=== PATIENT | male | born 1970 | race Caucasian/White ===

== ENCOUNTER 2016-10-20 08:15 | Emergency (ER) | payer OTHER ==
[~2016-10-20] VITALS: Ht 177.8 cm; Wt 101.7 kg
[2016-10-20 08:20] VITALS: BP 149/106; PULSE 72; RESP 15; TEMP 98.8; O2SAT 98
[2016-10-20] MEDS ORDERED: MULT1TAB85 PO (08:29)
--- NOTE | 2016-10-20 08:35 | PD ---
HPI Chief Complaint: Cold / Flu Symptoms Time Seen by Provider: 08:28 Travel History International Travel<30 days: No Contact w/Intl Traveler<30days: No Traveled to known affect area: No History of Present Illness HPI 46-year-old male here with complaint of flulike symptoms. Patient has had 5 days of cough, cold, chest congestion, sore throat, subjective fevers and chills and body aches. He recently traveled to [place] where he visited family in multiple members of his family were ill there with similar symptoms. Patient denies any documented fevers. Cough is primarily nonproductive. He presents the ER today because last night he noted some wheezing which was new when he's never had this before. Patient has been using [id number] Sudafed, DayQuil and NyQuil with some improvement of his symptoms. PFSH Past Medical History Hypertension: Yes Influenza Vaccination: No ?: Not Past Surgical History Surgical History: No Previous Surgery Social History Alcohol Use: Yes (COUPLE TIMES PER MONTH) Tobacco Use: No Substance Use: No Allergies-Medications (Allergen,Severity, Reaction): Coded Allergies: No Known Allergies (Unverified , 10/20/16) Reported Meds & Prescriptions Reported Meds & Active Scripts Active Reported Multivitamin Men (Multiple Vitamins W/ Minerals) 1 Tab Tab 1 Tab PO DAILY Review of Systems Except as stated in HPI: all other systems reviewed are Neg Physical Exam Narrative GENERAL: Well-appearing male in no acute distress SKIN: Focused skin assessment warm/dry. HEAD: Normocephalic. EYES: No scleral icterus. No injection or drainage. ENT: Nasal mucosal injection with slight erythema of the posterior pharynx but no exudate or petechiae. Mucous membranes pink and moist. TMs clear bilaterally. NECK: Supple CARDIOVASCULAR: Regular rate and rhythm. No murmur appreciated. RESPIRATORY: No accessory muscle use. Clear to auscultation. Breath sounds equal bilaterally. MUSCULOSKELETAL: Normal gait NEUROLOGICAL: Awake and alert. Normal speech. PSYCHIATRIC: Appropriate mood and affect; insight and judgment normal. Data Data Last Documented VS Vital Signs Date Time Temp Pulse Resp B/P Pulse Ox O2 Delivery O2 Flow Rate FiO2 10/20/16 08:20 98.8 72 15 149/106 98 Orders Dexamethasone Inj (Decadron Inj) (10/20/16 08:45) [facility] Medical Decision Making Medical Screen Exam Complete: Yes Emergency Medical Condition: Yes Medical Record Reviewed: Yes Differential Diagnosis 46-year-old male here with complaint of flulike symptoms 5 days with multiple sick contacts ill with similar symptoms. Symptoms likely viral upper respiratory infection, less likely influenza, sinusitis, otitis, bronchitis, pneumonia. Narrative Course Patient's most bothersome symptom is his cough. We'll treat with a dose of Decadron here and discharged home with continuation of [id number] regimen. Diagnosis Primary Impression: Upper respiratory infection Qualified Code: J06.9 - Upper respiratory tract infection, unspecified type Referrals: [facility] Primary Care Physician as needed Additional Instructions: Continue [id number] regimens as discussed. Med/Other Pt SpecificInfo: No Change to Meds Disposition: 01 DISCHARGE HOME Condition: Stable Zulma Meyer MD Oct 20, 2016 08:35
[2016-10-20] MEDS ORDERED: DEXAMETHASONE SOD PHOS 20 MG/5 ML VIAL IM ONE (08:45)
[2016-10-20 09:01] VITALS: BP 161/90
== END 2016-10-20 09:02 | disposition home or self-care (01) ==
LOC: PHEFT 08:15
DX: J06.9 Acute upper respiratory infection, unspecified (principal); I10 Essential (primary) hypertension
CPT/HCPCS: 96372; 99283; J1100

== ENCOUNTER 2016-12-10 21:44 | Inpatient (IN) | payer SELFPAY ==
[~2016-12-10] VITALS: Ht 177.8 cm; Wt 101.5 kg
[~2016-12-10 21:44] MED LIST: MULT1TAB85 PO
[2016-12-10 21:55] VITALS: BP 167/117; PULSE 108; RESP 20; TEMP 99.6
[2016-12-10 22:00] VITALS: BP 188/111; PULSE 94; RESP 22; TEMP 98.3; O2SAT 95
--- NOTE | 2016-12-10 22:13 | PD ---
HPI Chief Complaint: Abdominal Pain Time Seen by Provider: 21:59 Travel History International Travel<30 days: No Contact w/Intl Traveler<30days: No Traveled to known affect area: No History of Present Illness HPI This this 46-year-old male was at work today when he had sudden onset of right flank pain. Pain was quite severe and brought him to his knees. He had felt well when he went to work. He has not had pain like this before. He was nauseated and broke out in a cold sweat. Pain has been ongoing since then. PFSH Past Medical History Hypertension: Yes Social History Alcohol Use: Yes (COUPLE TIMES PER MONTH) Tobacco Use: No Substance Use: No Allergies-Medications (Allergen,Severity, Reaction): Coded Allergies: No Known Allergies (Unverified , 12/10/16) Reported Meds & Prescriptions Reported Meds & Active Scripts Active Review of Systems General / Constitutional: Positive: Chills Eyes: No: Diploplia, Blurred Vision HENT: No: Headaches, Vertigo Cardiovascular: No: Chest Pain or Discomfort, Palpitations Respiratory: No: Cough, Shortness of Breath Gastrointestinal: Positive: Nausea Genitourinary: Positive: Flank Pain Skin: No Rash, No Itching Neurologic: No: Weakness, Dizziness Psychiatric: No: Anxiety Endocrine: No: Heat Intolerance Hematologic/Lymphatic: No: Easy Bruising Physical Exam Narrative GENERAL: He is in distress on arrival. He is cool and slightly diaphoretic SKIN: Focused skin assessment HEAD: Atraumatic. Normocephalic. EYES: Pupils equal and round. No scleral icterus. No injection or drainage. ENT: No nasal bleeding or discharge. Mucous membranes pink and moist. NECK: Trachea midline. No JVD. CARDIOVASCULAR: Regular rate and rhythm. No murmur appreciated. RESPIRATORY: No accessory muscle use. Clear to auscultation. Breath sounds equal bilaterally. GASTROINTESTINAL: Abdomen soft, non-tender, nondistended. Hepatic and splenic margins not palpable. There is some right CVA tenderness MUSCULOSKELETAL: No obvious deformities. No clubbing. No cyanosis. No edema. NEUROLOGICAL: Awake and alert. No obvious cranial nerve deficits. Motor grossly within normal limits. Normal speech. PSYCHIATRIC: Appropriate mood and affect; insight and judgment normal. Data Data Last Documented VS Vital Signs Date Time Temp Pulse Resp B/P Pulse Ox O2 Delivery O2 Flow Rate FiO2 12/10/16 23:18 18 6/12/17 22:56 79 118/74 95 12/10/16 22:00 98.3 Room Air Orders Complete Blood Count With Diff (12/10/16 22:03) Comprehensive Metabolic Panel (12/10/16 22:03) Urinalysis - C+S If Indicated (12/10/16 22:03) Ct Abd/Pel W/O Iv Contrast (12/10/16 22:03) Ketorolac Inj (Toradol Inj) (12/10/16 22:15) Ondansetron Inj (Zofran Inj) (12/10/16 22:15) Sodium Chloride 0.9% Flush (Ns Flush) (12/10/16 22:15) Hydromorphone Pf Inj (Dilaudid Pf Inj) (12/10/16 22:15) Sodium Chlor 0.9% 1000 Ml Inj (Ns 1000 M (12/10/16 22:15) Prothrombin Time / Inr (Pt) (12/10/16 22:59) Act Partial Throm Time (Ptt) (12/10/16 22:59) Type And Screen (12/10/16 23:00) Potassium Chloride (Kcl) (12/10/16 23:15) Place In Observation (12/10/16 ) Vital Signs (Adult) Q4H (12/10/16 23:40) Activity Oob With Assistance (12/10/16 23:40) Neck Cutter / Telemetry .CONTINUOUS (12/10/16 23:40) Diet Npo (12/11/16 Breakfast) Sodium Chlor 0.9% 1000 Ml Inj (Ns 1000 M (12/10/16 23:40) Sodium Chloride 0.9% Flush (Ns Flush) (12/10/16 23:45) Sodium Chloride 0.9% Flush (Ns Flush) (12/11/16 09:00) Basic Metabolic Panel (Bmp) (12/11/16 06:00) Complete Blood Count With Diff (12/11/16 06:00) Case Management Consult (12/10/16 23:40) Naloxone Inj (Narcan Inj) (12/10/16 23:45) Hydromorphone Pf Inj (Dilaudid Pf Inj) (12/10/16 23:45) Mri Abdomen W&W/O Contrast (12/10/16 ) Admit Order (Ed Use Only) (12/10/16 23:42) Labs Laboratory Tests Test 12/10/16 22:15 White Blood Count 14.9 TH/MM3 Red Blood Count 4.53 MIL/MM3 Hemoglobin 14.0 GM/DL Hematocrit 40.8 % Mean Corpuscular Volume 90.2 FL Mean Corpuscular Hemoglobin 31.0 PG Mean Corpuscular Hemoglobin 34.4 % Concent Red Cell Distribution Width 13.7 % Platelet Count 441 TH/MM3 Mean Platelet Volume 7.9 FL Neutrophils (%) (Auto) 82.5 % Lymphocytes (%) (Auto) 10.5 % Monocytes (%) (Auto) 5.6 % Eosinophils (%) (Auto) 1.0 % Basophils (%) (Auto) 0.4 % Neutrophils # (Auto) 12.3 TH/MM3 Lymphocytes # (Auto) 1.6 TH/MM3 Monocytes # (Auto) 0.8 TH/MM3 Eosinophils # (Auto) 0.1 TH/MM3 Basophils # (Auto) 0.1 TH/MM3 CBC Comment AUTO DIFF Differential Comment AUTO DIFF CONFIRMED Platelet Estimate NORMAL Platelet Morphology Comment CLUMPED Red Cell Morphology Comment NORMAL Sodium Level 139 MEQ/L Potassium Level 3.3 MEQ/L Chloride Level 103 MEQ/L Carbon Dioxide Level 26.1 MEQ/L Anion Gap 10 MEQ/L Blood Urea Nitrogen 12 MG/DL Creatinine 1.10 MG/DL Estimat Glomerular Filtration 72 ML/MIN Rate Random Glucose 166 MG/DL Calcium Level 8.7 MG/DL Total Bilirubin 0.3 MG/DL Aspartate Amino Transf 20 U/L (AST/SGOT) Alanine Aminotransferase 50 U/L (ALT/SGPT) Alkaline Phosphatase 83 U/L Total Protein 7.2 GM/DL Albumin 3.5 GM/DL [facility] Medical Decision Making Medical Screen Exam Complete: Yes Emergency Medical Condition: Yes Medical Record Reviewed: Yes Differential Diagnosis Hemoglobin is 14. Creatinine is 1.3. CT scan was obtained and shows acute hemorrhage of the right kidney intraparenchymal and perinephric. Etiology is uncertain. No stone is seen or evidence of obstructive uropathy no definite mass. Recommendation is for MRI with and without contrast on a nonemergent basis. Patient was given pain medication with improvement of his pain. He has been hemodynamically stable. Case discussed with Dr. Lobo who advises symptomatic treatment at this time Narrative Course Patient has been given pain medication and IV fluids. His pain is improved. He will be admitted for observation Diagnosis Primary Impression: Renal hemorrhage, right Geovani Ramachandran MD Dec 10, 2016 22:13
[2016-12-10] MEDS ORDERED: HYDROmorphone HCL PF 1 MG/ML VIAL IVS ONE (22:15)
[2016-12-10] MEDS ORDERED: KETOROLAC TROMETHAMINE 30 MG/ML (IVP) VIAL IVP ONE (22:15)
[2016-12-10] MEDS ORDERED: SODIUM CHLOR 0.9% 1000 ML INJ 1,000 ML IV ONE (22:15)
[2016-12-10] MEDS ORDERED: ONDANSETRON HCL 4 MG/2 ML VIAL IVP ONE (22:15)
[2016-12-10] MEDS ORDERED: SODIUM CHLORIDE 0.9% FLUSH 10 ML FLUSH IVF PRN (22:15)
[2016-12-10 22:32] LABS: AUTOMATED NEUTROPHIL # 12.3 TH/MM3 (1.8-7.7); BASOPHIL # 0.1 TH/MM3 (0-0.2); BASOPHIL % 0.4 % (0.0-2.0); EOSINOPHIL # 0.1 TH/MM3 (0-0.4); HEMATOCRIT 40.8 % (39.0-51.0); LYMPH % 10.5 % (9.0-44.0); LYMPHOCYTE # 1.6 TH/MM3 (1.0-4.8); MEAN CELL VOLUME 90.2 FL (80.0-100.0); MEAN CORPUSCULAR HGB CONC 34.4 % (32.0-36.0); MONO % 5.6 % (0.0-8.0); NEUT % 82.5 % (16.0-70.0); PLATELET COUNT 441 TH/MM3 (150-450); RED BLOOD COUNT 4.53 MIL/MM3 (4.50-5.90); RED CELL DISTRIBUTION WIDTH 13.7 % (11.6-17.2); WHITE BLOOD COUNT 14.9 TH/MM3 (4.0-11.0)
[2016-12-10 22:41] LABS: CHLORIDE 103 MEQ/L (98-107); POTASSIUM 3.3 MEQ/L (3.5-5.1); SODIUM (NA) 139 MEQ/L (136-145)
[2016-12-10 22:45] LABS: ANION GAP 10 MEQ/L (5-15); BICARBONATE 26.1 MEQ/L (21.0-32.0); BLOOD UREA NITROGEN 12 MG/DL (7-18); HEMO FLAGS AUTO DIFF
[2016-12-10 22:48] LABS: ALT (GPT) 50 U/L (12-78); AST (GOT) 20 U/L (15-37); GLOMERULAR FILTRATION RATE 72 ML/MIN (>89)
[2016-12-10 22:49] LABS: TOTAL BILIRUBIN ADULT 0.3 MG/DL (0.2-1.0)
[2016-12-10 22:51] LABS: ALKALINE PHOSPHATASE 83 U/L (45-117)
--- NOTE | 2016-12-10 22:55 | RADHPO ---
EXAM DATE/TIME: 12/10/2016 22:25 [facility] COMPARISON: No previous studies available for comparison. INDICATIONS : Right flank pain and nausea. Evaluate for calculi. ORAL CONTRAST: No oral contrast ingested. RADIATION DOSE: 21.73 CTDIvol (mGy) MEDICAL HISTORY : Hypertension. SURGICAL HISTORY : None. ENCOUNTER: Initial ACUITY: 1 day PAIN SCALE: 8/10 LOCATION: Right flank TECHNIQUE: Volumetric scanning of the abdomen and pelvis was performed. Using automated exposure control and ad justment of the mA and/or kV according to patient size, radiation dose was kept as low as reasonably achievable to obtain optimal diagnostic quality images. FINDINGS: Swollen and hemorrhagic right kidney demonstrated. There is also nonorganized michael-nephric hemorrhage . I don't see a stone or hydronephrosis or hydroureter. Faint 2 mm nonobstructing stone seen in the left mid zone. There is a 7 mm round intermediate density lesion of the left lower pole, probably proteinaceous cyst. Liver is mild fatty infiltrated and mildly enlarged. No focal hepatic lesion. CT appearance of the ga llbladder within normal limits. Spleen, pancreas and adrenal glands are normal. No obstruction or acute inflammatory changes are seen of the gastrointestinal tract. Trace atelectasis of the visualized lung bases. CONCLUSION: 1. Acute hemorrhage of the right kidney, most of the intraparenchymal and perinephric. Etiology uncer tain. I don't see a stone or evidence of obstructive uropathy. No definite mass.2. Tiny nonobstructin g stone of the left kidney and a subcentimeter intermediate density nodule of the lower pole that is most likely a debris filled cyst. Nonemergent attempted further characterization with MRI of the abdo men with and without contrast recommended.. Jonah Landrum MD on December 10, 2016 at 22:48 Board Certified Radiologist. This report was verified electronically.
[2016-12-10 22:56] VITALS: BP 118/74; PULSE 79; RESP 20; O2SAT 95
[2016-12-10 23:04] LABS: PLATELET ESTIMATE SMEAR NORMAL (NORMAL); PLATELET MORPHOLOGY CLUMPED (NORMAL)
[2016-12-10 23:05] LABS: SCAN/DIFF AUTO DIFF CONFIRMED
[2016-12-10] MEDS ORDERED: POTASSIUM CHLORIDE 20 MEQ CONTROLLED RELEASE TAB PO ONE (23:15)
[2016-12-10 23:44] LABS: GLUCOSE,URINE NEG (NEG); KETONE, URINE NEG (NEG); NITRITE,URINE NEG (NEG); PH, URINE 5.5 (5.0-8.5)
[2016-12-10] MEDS ORDERED: NALOXONE HCL 0.4 MG/ML AMP IV PRN (23:45)
[2016-12-10] MEDS ORDERED: SODIUM CHLORIDE 0.9% FLUSH 10 ML FLUSH IV FLUSH PRN (23:45)
[2016-12-10 23:52] LABS: APTT (PATIENT) 24.3 SEC (24.3-30.1); BLOOD, URINE MOD (NEG); PROTHROMBIN TIME - PATIENT 10.7 SEC (9.8-11.6)
[2016-12-10 23:53] LABS: URINE COLOR YELLOW (YELLW/STRAW)
[2016-12-10 23:54] LABS: CALCIUM OXALATE CRYSTALS,URINE MANY /hpf; MUCUS URINE MOD /lpf (OCC); SQUAMOUS EPITHELIAL CELL URINE 0-5 /hpf (0-5)
[2016-12-10 23:55] LABS: COMMENT (UR) CULT NOT INDICATED; CULTURE IF INDICATED CULT NOT INDICATED; WBC, URINE 0-2 /hpf (0-5)
[2016-12-10 23:59] VITALS: BP 168/91; PULSE 78; RESP 16; O2SAT 97
[2016-12-11] VITALS (7 sets, daily range): BP systolic 104–165; BP diastolic 76–105; PULSE 80–104; RESP 18–22; TEMP 95.8–97.8; O2SAT 94–100
[2016-12-11] MEDS: SODIUM CHLOR 0.9% 1000 ML INJ 1,000 ML IV SCH ×4 (00:05→22:22)
[2016-12-11] MEDS: HYDROmorphone HCL PF 1 MG/ML VIAL IV PUSH PRN ×6 (01:30→22:50)
[2016-12-11 06:15] LABS: AUTOMATED NEUTROPHIL # 19.4 TH/MM3 (1.8-7.7); BASOPHIL % 0.1 % (0.0-2.0); EOSINOPHIL # 0.2 TH/MM3 (0-0.4); EOSINOPHIL % 0.8 % (0.0-4.0); HEMATOCRIT 35.2 % (39.0-51.0); LYMPH % 5.4 % (9.0-44.0); LYMPHOCYTE # 1.2 TH/MM3 (1.0-4.8); MEAN CORPUSCULAR HEMOGLOBIN 31.8 PG (27.0-34.0); MEAN CORPUSCULAR HGB CONC 34.6 % (32.0-36.0); MONO % 4.7 % (0.0-8.0); PLATELET COUNT 410 TH/MM3 (150-450); RED BLOOD COUNT 3.83 MIL/MM3 (4.50-5.90); RED CELL DISTRIBUTION WIDTH 13.9 % (11.6-17.2); WHITE BLOOD COUNT 21.8 TH/MM3 (4.0-11.0)
[2016-12-11 06:30] LABS: HEMO FLAGS AUTO DIFF
[2016-12-11 06:31] LABS: BICARBONATE 25.8 MEQ/L (21.0-32.0)
[2016-12-11 07:20] LABS: SCAN/DIFF AUTO DIFF CONFIRMED
[2016-12-11] MEDS ORDERED: DEXTROSE 50% IN WATER 50 ML VIAL(D50) IV PRN (08:30)
[2016-12-11] MEDS ORDERED: ENALAPRILAT 1.25 MG/ML VIAL IV PUSH PRN (08:30)
[2016-12-11] MEDS ORDERED: GLUCAGON 1 MG/ML VIAL OTHER PRN (08:30)
--- NOTE | 2016-12-11 08:31 | HHI.HP ---
[facility] Service [facility] Primary Care Physician No Primary Care Physician Admission Diagnosis RENAL HEMORRHAGE Diagnoses: (1) Renal hemorrhage, right (2) Hyperglycemia (3) Hypertension Chief Complaint: Right flank pain Travel History International Travel<30 Days: No Contact w/Intl Traveler <30 Da: No Traveled to Known Affected Are: No History of Present Illness The patient is a 46-year-old male who developed sudden onset of right flank pain while at work last night. 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 He states that the pain was severe and has not improved. It does respond to the pain medication, but only for a short time. Currently pain is 9/10. He has never had similar pain previously. He reports nausea and multiple episodes of vomiting on the way to the ER last night. He has had subjective fever and chills. Denies dysuria. Review of Systems Constitutional: COMPLAINS OF: Fever, Chills, Night Sweats Eyes: DENIES: Blurred vision, Vision loss Ears, nose, mouth, throat: DENIES: Hearing loss Respiratory: DENIES: Cough, Wheezing, Sputum production, Shortness of breath Cardiovascular: DENIES: Chest pain, Palpitations, Dyspnea on Exertion, Lower Extremity Edema Gastrointestinal: COMPLAINS OF: Abdominal pain (right flank), Nausea, Vomiting , DENIES: Constipation, Diarrhea Genitourinary: DENIES: Urinary frequency, Urinary incontinence, Urgency, Hematuria, Dysuria, Nocturia Musculoskeletal: DENIES: Joint pain, Muscle aches Integumentary: DENIES: Pruritus, Rash Hematologic/lymphatic: DENIES: Bruising Neurologic: DENIES: Headache Past Family Social History Past Medical History Hypertension Hyperlipidemia Past Surgical History Hemorrhoid surgery Reported Medications None Allergies: Coded Allergies: No Known Allergies (Unverified , 12/10/16) Family History Father had mesothelioma Social History Patient reports that he rarely smokes cigarettes. Also reports rare alcohol use. Denies illicit drug use. Physical Exam Vital Signs Vital Signs Date Time Temp Pulse Resp B/P Pulse Ox O2 Delivery O2 Flow Rate FiO2 12/11/16 08:19 96.5 87 18 149/102 97 12/11/16 04:00 95.8 80 20 156/105 95 12/11/16 01:15 81 12/11/16 01:05 95.8 81 22 159/100 95 12/10/16 23:59 78 16 168/91 97 Room Air 12/10/16 23:35 16 12/10/16 23:18 18 12/10/16 22:56 79 20 118/74 95 12/10/16 22:49 18 12/10/16 22:00 98.3 94 22 188/111 95 Room Air 12/10/16 22:00 22 12/10/16 21:55 99.6 108 20 167/117 Physical Exam GENERAL: Well-nourished, well-developed male in no acute distress. Appears uncomfortable. HEENT: Normocephalic, atraumatic. Pupils equal, round and reactive. Extraocular movements intact. No scleral icterus. No injection or drainage. Oropharynx is clear. Mucous membranes are moist. CARDIOVASCULAR: Regular rate and rhythm without murmurs, gallops, or rubs. RESPIRATORY: Clear to auscultation. No wheezes, rales, or rhonchi. Breathing is non-labored. GASTROINTESTINAL: Abdomen soft, non-tender, nondistended. There is tenderness to palpation over the right flank, CVA. EXTREMITIES: No lower extremity edema. No calf tenderness. PSYCH: Alert and oriented x 3. Laboratory Laboratory Tests Test 12/10/16 12/10/16 12/11/16 22:15 23:18 05:10 White Blood Count 14.9 21.8 Red Blood Count 4.53 3.83 Hemoglobin 14.0 12.2 Hematocrit 40.8 35.2 Mean Corpuscular Volume 90.2 92.0 Mean Corpuscular Hemoglobin 31.0 31.8 Mean Corpuscular Hemoglobin 34.4 34.6 Concent Red Cell Distribution Width 13.7 13.9 Platelet Count 441 410 Mean Platelet Volume 7.9 8.2 Neutrophils (%) (Auto) 82.5 89.0 Lymphocytes (%) (Auto) 10.5 5.4 Monocytes (%) (Auto) 5.6 4.7 Eosinophils (%) (Auto) 1.0 0.8 Basophils (%) (Auto) 0.4 0.1 Neutrophils # (Auto) 12.3 19.4 Lymphocytes # (Auto) 1.6 1.2 Monocytes # (Auto) 0.8 1.0 Eosinophils # (Auto) 0.1 0.2 Basophils # (Auto) 0.1 0.0 CBC Comment AUTO DIFF AUTO DIFF Differential Comment AUTO DIFF AUTO DIFF CONFIRMED CONFIRMED Platelet Estimate NORMAL Platelet Morphology Comment CLUMPED Red Cell Morphology Comment NORMAL Sodium Level 139 140 Potassium Level 3.3 4.0 Chloride Level 103 105 Carbon Dioxide Level 26.1 25.8 Anion Gap 10 9 Blood Urea Nitrogen 12 16 Creatinine 1.10 1.20 Estimat Glomerular Filtration 72 65 Rate Random Glucose 166 200 Calcium Level 8.7 8.3 Total Bilirubin 0.3 Aspartate Amino Transf 20 (AST/SGOT) Alanine Aminotransferase 50 (ALT/SGPT) Alkaline Phosphatase 83 Total Protein 7.2 Albumin 3.5 Prothrombin Time 10.7 Prothromb Time International 1.0 Ratio Activated Partial 24.3 Thromboplast Time Urine Color YELLOW Urine Turbidity SLIGHT Urine pH 5.5 Urine Specific Center 1.021 Urine Protein 100 Urine Glucose (UA) NEG Urine Ketones NEG Urine Occult Blood MOD Urine Nitrite NEG Urine Bilirubin NEG Urine Leukocyte Esterase NEG Urine RBC 4-9 Urine WBC 0-2 Urine Squamous Epithelial 0-5 Cells Urine Calcium Oxalate Crystals MANY Urine Hyaline Casts 10-14 Urine Mucus MOD Microscopic Urinalysis Comment CULT NOT INDICATED Blood Type O POSITIVE Antibody Screen NEGATIVE Blood Bank Comment Result Diagram: 12/11/16 0510 12/11/16 0510 Imaging Last Impressions Abdomen/Pelvis CT 12/10/162202 Signed Impressions: Service Date/Time: Saturday, December 10, 2016 22:25 - CONCLUSION: 1. Acute hemorrhage of the right kidney, most of the intraparenchymal and perinephric. Etiology uncertain. I don't see a stone or evidence of obstructive uropathy. No definite mass. 2. Tiny nonobstructing stone of the left kidney and a subcentimeter intermediate density nodule of the lower pole that is most likely a debris filled cyst. Nonemergent attempted further characterization with MRI of the abdomen with and without contrast recommended.. Jonah Landrum MD Assessment and Plan Assessment and Plan 1. Right renal hemorrhage: Uncertain etiology. MRI ordered. Consult urology. Continue pain control. 2. Hypertension: Blood pressure is elevated, likely exacerbated due to pain. Vasotec as needed. 3. Leukocytosis: Possibly stress reaction versus infection. Monitor labs. 4. Hyperglycemia: No documented history of diabetes. Check A1c. Monitor Accu- Cheks and cover with sliding scale insulin. 5. DVT prophylaxis: CHERYL Don. Avoid chemical prophylaxis secondary to renal hemorrhage. Az Ocasio MD Dec 11, 2016 08:31
[2016-12-11] MEDS: SODIUM CHLORIDE 0.9% FLUSH 10 ML FLUSH IV FLUSH SCH ×2 (08:44→20:49)
[2016-12-11] MEDS: INSULIN ASPART SUPPLEMENTAL SCALE SQ SCH ×3 (11:00→20:45)
[2016-12-11 11:29] LABS: REVIEW FLAG FINAL
--- NOTE | 2016-12-11 11:35 | PD.CONS ---
HPI Service Urology Consult Requested By Primary Care Physician No Primary Care Physician Diagnosis: (1) Renal hemorrhage, right ICD Code: N28.89 (2) Hyperglycemia ICD Code: R73.9 (3) Hypertension ICD Code: I10 History of Present Illness 46-year-old male presented with acute onset of right sided flank pain. He works at [employer] and he states that he was bending over and then a rise in the standing position and experienced acute right sided flank pain. The pain was intense and persistent. He then went on to develop nausea and vomiting. He denies any fever or chills or any history of bleeding diathesis. CT scan of the abdomen and pelvis without contrast in the emergency room demonstrated intra -parenchymal and perinephric hemorrhage around the right kidney. No masses were identified on the study but was difficult to visualize without contrast. He denies any history of seizure disorder or tubular sclerosis. He does note a history of hypertension which is not controlled on medication as well as hyperlipidemia. Hemoglobin on admission was 14 and then the same limits 12.2. His creatinine was 1.2. He denies any history of renal disease. Review of Systems Constitutional: COMPLAINS OF: Weight gain, DENIES: Fever Endocrine: DENIES: Heat/cold intolerance Ears, nose, mouth, throat: DENIES: Tinnitus, Hearing loss Respiratory: DENIES: Cough Cardiovascular: DENIES: Chest pain Gastrointestinal: COMPLAINS OF: Abdominal pain, Nausea, Vomiting Musculoskeletal: DENIES: Joint pain Integumentary: DENIES: Abnormal pigmentation Hematologic/lymphatic: DENIES: Bruising Immunologic/allergic: DENIES: Eczema Neurologic: DENIES: Abnormal gait Psychiatric: DENIES: Anxiety Past Family Social History Past Medical History Hypertension Hyperlipidemia Past Surgical History [place] teeth removed Hemorrhoid surgery Allergies: Coded Allergies: No Known Allergies (Unverified , 12/10/16) Family History Mother with history of breast cancer Denies any history of malignancies No family history of prostate cancers noted Social History Social EtOH Rarely smokes at all. Physical Exam Vital Signs Date Time Temp Pulse Resp B/P Pulse Ox O2 Delivery O2 Flow Rate FiO2 12/11/16 08:19 96.5 87 18 149/102 97 12/11/16 04:00 95.8 80 20 156/105 95 12/11/16 01:15 81 12/11/16 01:05 95.8 81 22 159/100 95 12/10/16 23:59 78 16 168/91 97 Room Air 12/10/16 23:35 16 12/10/16 23:18 18 12/10/16 22:56 79 20 118/74 95 12/10/16 22:49 18 12/10/16 22:00 98.3 94 22 188/111 95 Room Air 12/10/16 22:00 22 12/10/16 21:55 99.6 108 20 167/117 Physical Exam GENERAL: This is a well-nourished, well-developed patient, in no apparent distress. SKIN: No rashes, ecchymoses or lesions. Cool and dry. HEAD: Atraumatic. Normocephalic. No temporal or scalp tenderness. EYES: Pupils equal round and reactive. Extraocular motions intact. No scleral icterus. No injection or drainage. ENT: Nose without bleeding, purulent drainage or septal hematoma. Throat without erythema, tonsillar hypertrophy or exudate. Uvula midline. Airway patent. NECK: Trachea midline. No JVD or lymphadenopathy. Supple, nontender, no meningeal signs. CARDIOVASCULAR: Regular rate and rhythm without murmurs, gallops, or rubs. RESPIRATORY: Clear to auscultation. Breath sounds equal bilaterally. No wheezes , rales, or rhonchi. GASTROINTESTINAL: Abdomen soft, tenderness right side, nondistended. No hepato- splenomegaly, or palpable masses. No guarding. Right CVA tenderness is noted GENITOURINARY: Normal phallus testes are descended, rectal deferred MUSCULOSKELETAL: Extremities without clubbing, cyanosis, or edema. No joint tenderness, effusion, or edema noted. No calf tenderness. Negative Homans sign bilaterally. NEUROLOGICAL: Awake and alert. Cranial nerves II through XII intact. Motor and sensory grossly within normal limits. Five out of 5 muscle strength in all muscle groups. Normal speech. Laboratory Tests Test 12/10/16 12/10/16 12/11/16 22:15 23:18 05:10 White Blood Count 14.9 21.8 Red Blood Count 4.53 3.83 Hemoglobin 14.0 12.2 Hematocrit 40.8 35.2 Mean Corpuscular Volume 90.2 92.0 Mean Corpuscular Hemoglobin 31.0 31.8 Mean Corpuscular Hemoglobin 34.4 34.6 Concent Red Cell Distribution Width 13.7 13.9 Platelet Count 441 410 Mean Platelet Volume 7.9 8.2 Neutrophils (%) (Auto) 82.5 89.0 Lymphocytes (%) (Auto) 10.5 5.4 Monocytes (%) (Auto) 5.6 4.7 Eosinophils (%) (Auto) 1.0 0.8 Basophils (%) (Auto) 0.4 0.1 Neutrophils # (Auto) 12.3 19.4 Lymphocytes # (Auto) 1.6 1.2 Monocytes # (Auto) 0.8 1.0 Eosinophils # (Auto) 0.1 0.2 Basophils # (Auto) 0.1 0.0 CBC Comment AUTO DIFF AUTO DIFF Differential Comment AUTO DIFF AUTO DIFF CONFIRMED CONFIRMED Platelet Estimate NORMAL Platelet Morphology Comment CLUMPED Red Cell Morphology Comment NORMAL Sodium Level 139 140 Potassium Level 3.3 4.0 Chloride Level 103 105 Carbon Dioxide Level 26.1 25.8 Anion Gap 10 9 Blood Urea Nitrogen 12 16 Creatinine 1.10 1.20 Estimat Glomerular Filtration 72 65 Rate Random Glucose 166 200 Calcium Level 8.7 8.3 Total Bilirubin 0.3 Aspartate Amino Transf 20 (AST/SGOT) Alanine Aminotransferase 50 (ALT/SGPT) Alkaline Phosphatase 83 Total Protein 7.2 Albumin 3.5 Prothrombin Time 10.7 Prothromb Time International 1.0 Ratio Activated Partial 24.3 Thromboplast Time Urine Color YELLOW Urine Turbidity SLIGHT Urine pH 5.5 Urine Specific [place] 1.021 Urine Protein 100 Urine Glucose (UA) NEG Urine Ketones NEG Urine Occult Blood MOD Urine Nitrite NEG Urine Bilirubin NEG Urine Leukocyte Esterase NEG Urine RBC 4-9 Urine WBC 0-2 Urine Squamous Epithelial 0-5 Cells Urine Calcium Oxalate Crystals MANY Urine Hyaline Casts 10-14 Urine Mucus MOD Microscopic Urinalysis Comment CULT NOT INDICATED Blood Type O POSITIVE Antibody Screen NEGATIVE Blood Bank Comment Result Diagram: 12/11/16 0510 12/11/16 0510 Imaging Last Impressions Abdomen/Pelvis CT 12/10/160 Signed Impressions: Service Date/Time: Saturday, December 10, 2016 22:25 - CONCLUSION: 1. Acute hemorrhage of the right kidney, most of the intraparenchymal and perinephric. Etiology uncertain. I don't see a stone or evidence of obstructive uropathy. No definite mass. 2. Tiny nonobstructing stone of the left kidney and a subcentimeter intermediate density nodule of the lower pole that is most likely a debris filled cyst. Nonemergent attempted further characterization with MRI of the abdomen with and without contrast recommended.. Jonah Landrum MD Assessment and Plan Assessment and Plan 46-year-old male with right intraparenchymal and perinephric hemorrhage of unclear etiology. Hemoglobin fairly stable at 14 down to 12.2. Recommend serial H&H every 6 hours. Transfusion as necessary. Bed rest for now. IV hydration. MRI with and without contrast of the abdomen currently pending. We'll need to repeat imaging study in 48 hours to assess for any further bleeding or expanding hematoma. Thank you for the consult and for allowing me to participate in the care of this patient. Norman Ngo DO Dec 11, 2016 11:35
[2016-12-11] MEDS ORDERED: GADODIAMIDE PF 287 MG/ML 20 ML VIAL (for RAD MRI) IV ONE (12:28)
--- NOTE | 2016-12-11 12:29 | RADHPO ---
EXAM DATE/TIME: 12/11/2016 10:51 [facility] COMPARISON: CT ABDOMEN & PELVIS W/O CONTRAST, December 10, 2016, 22:25. INDICATIONS : Abnormal CT scan. Hemorrhage right kidney. CONTRAST: 20 cc Omniscan (gadodiamide) IV MEDICAL HISTORY : Hypertension. SURGICAL HISTORY : Hemorrhoidectomy. ENCOUNTER: Initial ACUITY: 3 day PAIN SCORE: 4/10 LOCATION: Abdomen TECHNIQUE: Multiplanar, multisequence magnetic resonance imaging of the abdomen was performed without and with i ntravenous contrast. FINDINGS: There is evidence of significant subcapsular hemorrhage involving the right kidney with the hematoma measuring 12.1 x 10.3 x 9.0 cm. There is also blush of contrast within this hematoma on the post contrast imag es suggesting ongoing hemorrhage. The subcapsular hematoma deforms the renal cortex and may result in Page kidney on the right. Clinical correlation is recommended. Perinephric hemorrhage is also noted. The liver is enl arged and demonstrates diffuse fatty infiltration. The spleen is unremarkable. The pancreas is also unremarka ble. The adrenal glands are normal bilaterally. The abdominal aorta and inferior vena cava are unremarkable. No paraaortic, retroperitoneal or mesenteric lymphadenopathy is noted. Scoliosis of the lumbar spine is noted. CONCLUSION: 1. Large subcapsular hemorrhage involving the right kidney measuring 12.1 x 10.3 x 9.0 cm which defo hipolito the right renal cortex. There is contrast blush within the central portion of this hematoma sugg esting ongoing hemorrhage. This may result in Page kidney on the right. Clinical correlation is rec ommended. Perinephric hemorrhage is also noted on the right. 2. Enlarged fatty liver. 3. Scoliosis of the lumbar spine. Eber Ruiz MD on December 11, 2016 at 12:08 Board Certified Radiologist. This report was verified electronically.
[2016-12-11 13:14] LABS: HEMOGLOBIN A1a 0.9 %; HEMOGLOBIN A1b 2.1 %; HEMOGLOBIN Ao 84.2 %; HEMOGLOBIN LA1C 2.5 %; HEMOGLOBIN P3 3.9 %
[2016-12-11] MEDS: hydrALAZINE HCL 10 MG TAB PO SCH ×2 (15:13→20:44)
[2016-12-11 16:59] LABS: REVIEW FLAG FINAL
[2016-12-11 22:44] LABS: HEMATOCRIT 28.2 % (39.0-51.0); REVIEW FLAG FINAL
[2016-12-12] VITALS (15 sets, daily range): BP systolic 132–170; BP diastolic 78–98; PULSE 86–104; RESP 16–19; TEMP 97.8–99.4; O2SAT 89–98
[2016-12-12] MEDS: hydrALAZINE HCL 10 MG TAB PO SCH ×4 (02:20→20:14)
[2016-12-12] MEDS: HYDROmorphone HCL PF 1 MG/ML VIAL IV PUSH PRN ×5 (02:21→21:54)
[2016-12-12] MEDS: INSULIN ASPART SUPPLEMENTAL SCALE SQ SCH ×4 (06:41→20:15)
[2016-12-12 06:46] LABS: BASOPHIL % 0.3 % (0.0-2.0); EOSINOPHIL # 0.2 TH/MM3 (0-0.4); HEMATOCRIT 25.9 % (39.0-51.0); LYMPH % 12.3 % (9.0-44.0); LYMPHOCYTE # 1.9 TH/MM3 (1.0-4.8); MEAN CELL VOLUME 91.9 FL (80.0-100.0); MEAN CORPUSCULAR HEMOGLOBIN 31.5 PG (27.0-34.0); MEAN CORPUSCULAR HGB CONC 34.3 % (32.0-36.0); MONO % 9.3 % (0.0-8.0); NEUT % 77.1 % (16.0-70.0); PLATELET COUNT 347 TH/MM3 (150-450); RED BLOOD COUNT 2.82 MIL/MM3 (4.50-5.90); RED CELL DISTRIBUTION WIDTH 14.2 % (11.6-17.2); WHITE BLOOD COUNT 15.6 TH/MM3 (4.0-11.0)
[2016-12-12 06:50] LABS: HEMO FLAGS DIFF FINAL
[2016-12-12 07:00] LABS: POTASSIUM 3.6 MEQ/L (3.5-5.1)
[2016-12-12 07:07] LABS: BICARBONATE 27.6 MEQ/L (21.0-32.0)
[2016-12-12] MEDS ORDERED: SODIUM CHLOR 0.9% 250 ML INJ 250 ML IV ONE (07:30)
--- NOTE | 2016-12-12 08:01 | HHI.PR ---
Subjective Remarks Follow-up renal hemorrhage, anemia. Patient still having right flank pain, which he states is unchanged. No dyspnea, lightheadedness. Objective Vitals Vital Signs Date Time Temp Pulse Resp B/P Pulse Ox O2 Delivery O2 Flow Rate FiO2 12/12/16 04:00 97.8 104 18 133/78 96 12/12/16 00:00 98.6 98 18 170/98 97 12/11/16 20:00 97.8 104 18 155/92 96 12/11/16 17:40 97.3 98 19 165/98 94 12/11/16 13:26 96.5 89 19 152/103 97 12/11/16 08:19 96.5 87 18 149/102 97 I/O 12/11/16 12/11/16 12/11/16 12/12/16 12/12/16 12/12/16 07:00 15:00 23:00 07:00 15:00 23:00 Intake Total 1000 ml 1581 ml 785 ml Balance 1000 ml 1581 ml 785 ml Intake Oral 420 ml IV Total 1000 ml 1581 ml 365 ml # Voids 4 # Bowel Movements 0 Result Diagram: 12/12/16 0540 12/12/16 0540 Imaging Last Impressions Abdomen MRI 12/11/16 0000 Signed Impressions: Service Date/Time: Sunday, December 11, 2016 10:51 - CONCLUSION: 1. Large subcapsular hemorrhage involving the right kidney measuring 12.1 x 10.3 x 9.0 cm which deforms the right renal cortex. There is contrast blush within the central portion of this hematoma suggesting ongoing hemorrhage. This may result in Page kidney on the right. Clinical correlation is recommended. Perinephric hemorrhage is also noted on the right. 2. Enlarged fatty liver. 3. Scoliosis of the lumbar spine. Eber Ruiz MD Abdomen/Pelvis CT 12/10/163 Signed Impressions: Service Date/Time: Saturday, December 10, 2016 22:25 - CONCLUSION: 1. Acute hemorrhage of the right kidney, most of the intraparenchymal and perinephric. Etiology uncertain. I don't see a stone or evidence of obstructive uropathy. No definite mass. 2. Tiny nonobstructing stone of the left kidney and a subcentimeter intermediate density nodule of the lower pole that is most likely a debris filled cyst. Nonemergent attempted further characterization with MRI of the abdomen with and without contrast recommended.. Jonah Landrum MD Objective Remarks General: No acute distress. Heart: Regular rate and rhythm. No murmur. Lungs: Clear to auscultation bilaterally. No wheezes, rales, or rhonchi. Breathing is nonlabored. Abdomen: Soft, nontender, nondistended. Tenderness over the right flank. Extremities: No lower extremity edema. Psych: Alert and oriented. Urinary Catheter: No Vascular Central Line Catheter: No A/P Problem List: (1) Renal hemorrhage, right ICD Code: N28.89 Status: Acute (2) Hyperglycemia ICD Code: R73.9 Status: Acute (3) Hypertension ICD Code: I10 Status: Chronic (4) Acute blood loss anemia ICD Code: D62 Status: Acute Assessment and Plan 1. Right renal hemorrhage: Uncertain etiology. MRI shows increasing subcapsular blood collection. Appreciate urology recommendations. Discussed with Dr. Ngo at bedside. Pain control. [facility] procedure. 2. Hypertension: Blood pressure control is improved this morning. Continue hydralazine. Vasotec as needed. 3. Leukocytosis: Possibly stress reaction versus infection. Monitor labs. Improving. 4. Hyperglycemia: No documented history of diabetes. Hemoglobin A1c is 6. Monitor Accu-Cheks and cover with sliding scale insulin. 5. Acute blood loss anemia: Secondary to renal hemorrhage. Transfuse 1 unit PRBCs. Monitor H&H closely. 6. DVT prophylaxis: SCDs, CHERYL avalose. Avoid chemical prophylaxis secondary to renal hemorrhage. Az Ocasio MD Dec 12, 2016 08:01
--- NOTE | 2016-12-12 08:22 | HHI.PR ---
Subjective Patient symptoms today Pt seen and examined. Hbg down to 8.9 this AM. Abdominal pain noted. Objective Vital Signs Vital Signs Date Time Temp Pulse Resp B/P Pulse Ox O2 Delivery O2 Flow Rate FiO2 12/12/16 04:00 97.8 104 18 133/78 96 12/12/16 00:00 98.6 98 18 170/98 97 12/11/16 20:00 97.8 104 18 155/92 96 12/11/16 17:40 97.3 98 19 165/98 94 12/11/16 13:26 96.5 89 19 152/103 97 12/11/16 08:19 96.5 87 18 149/102 97 Intake & Output 12/12/16 12/12/16 07:00 19:00 Intake Total 785 ml Balance 785 ml Intake Oral 420 ml IV Total 365 ml # Voids 4 # Bowel Movements 0 Result Diagram: 12/12/16 0540 12/12/16 0540 Objective Remarks Abd: soft,nd, tender on right side with palpation Medications and IVs Current Medications Medications (Trade) Dose Ordered Sig/Marie Route Start Time Stop Time Status Last Admin (NS 1000 ml Inj) 1,000 ml @ 100 mls/hr Q10H IV 12/10/16 23:40 12/11/16 22:22 (NS Flush) 2 ml UNSCH PRN IV FLUSH 12/10/16 23:45 (NS Flush) 2 ml BID IV FLUSH 12/11/16 09:00 (Narcan Inj) 0.4 mg UNSCH PRN IV 12/10/16 23:45 (Dilaudid Pf Inj) 0.5 mg Q3H PRN IV PUSH 12/11/16 08:27 12/12/16 07:43 (D50w (Vial) Inj) 50 ml UNSCH PRN IV 12/11/16 08:30 (Glucagon Inj) 1 mg UNSCH PRN OTHER 12/11/16 08:30 (Vasotec Inj) 1.25 mg Q6H PRN IV PUSH 12/11/16 08:30 Hydralazine HCl 10 mg 10 mg Q6H PO 12/11/16 15:00 12/12/16 07:42 (NS 250 ml Inj) 250 ml @ 15 mls/hr ONCE ONCE IV 12/12/16 07:30 12/13/16 00:09 Assessment and Plan Assessment and Plan 46-year-old male with right intraparenchymal and perinephric hemorrhage of unclear etiology. Hemoglobin fairly stable at 14 down to 12.2. Recommend serial H&H every 6 hours. Transfusion as necessary. Bed rest for now. IV hydration. MRI with and without contrast of the abdomen currently pending. We'll need to repeat imaging study in 48 hours to assess for any further bleeding or expanding hematoma. Thank you for the consult and for allowing me to participate in the care of this patient. 12/12 46 y.o male with right intraparenchymal and perinephric hemorrhage of unclear etiology Transfuse 1 unit PRBC's today Recommend IR selective embolization to stop bleeding as pt is more symptomatic today and Hgb has dropped from 14 to 8.9 since admission and he is now tachycardic. NPO Discussion at length with the pt and understands the importance of stopping the bleeding. Norman Ngo DO Dec 12, 2016 08:22
[2016-12-12] MEDS: SODIUM CHLORIDE 0.9% FLUSH 10 ML FLUSH IV FLUSH SCH ×2 (09:00→20:15)
[2016-12-12] MEDS ORDERED: MIDAZOLAM HCL 5 MG/5 ML VIAL ONE (10:43)
[2016-12-12] MEDS ORDERED: fentaNYL CITRATE 250 MCG/5 ML AMP ONE (10:43)
[2016-12-12] MEDS ORDERED: IODIXANOL 320 MG/ML 50 ML VIAL (for RAD SPEC) I-ARTERIAL ONE (11:21)
--- NOTE | 2016-12-12 11:21 | PD.RAD ---
Post Procedure Progress Note Pre Procedure Diagnosis: (1) Renal hemorrhage, right Post Procedure Diagnosis: (1) Renal hemorrhage, right Procedure Date: Dec 12, 2016 Supervising Radiologist: Galindo Stevenson Anesthesia: Local, Conscious Sedation Plan of Activity Patient to Unit: ROPU Patient Condition: Good Additional Comments: Right renal angio completed with subselective injections. No active bleeding identified. right renal capsule compressed due to large subcapsular hemorrhage. No tumor vascularity identified See PACS Report for procedural detail/treatment Galnido Stevenson MD Dec 12, 2016 11:21
[2016-12-12] MEDS ORDERED: ceFAZolin 2 GM PREMIX 50 ML ONE (11:29)
--- NOTE | 2016-12-12 12:59 | RADRPT ---
EXAM DATE/TIME: 12/12/2016 11:26 [facility] COMPARISON: CT ABDOMEN & PELVIS W/O CONTRAST, December 10, 2016, 22:25. ULTRASOUND GUIDANCE FOR VASCULAR ACCESS, Nov, 0:00. INDICATIONS : Patient with a history of right renal hemorrhage. MEDICAL HISTORY : HTN Hyperlipidemia SURGICAL HISTORY : Hemorrhoid surgery ENCOUNTER: Initial ACUITY: 2 days PAIN SCORE: 7/10 LOCATION: Bilateral mid back FLUORO TIME: 3.1 minutes IMAGE SERIES: 6 ACCESS SITE: Right Femoral artery SEDATION TIME: 30 minutes CONTRAST: 1.) 50 cc Visipaque (iodixanol) MEDICATION(S): 1.) 2 mg midazolam (Versed) IV 2.) 100 mcg fentanyl (Sublimaze) IV DEVICE(S): 1.) Right common femoral artery 6F Angio-Seal 2.) Right common femoral artery Syvek pad PROCEDURE : 1. Ultrasound-guided puncture of the access site. 2. Angiography of the access site prior to closure device. 3. Conscious sedation with continuous EKG and Oximetry monitoring. 4. Percutaneous closure of the access site. 5. Angiography of the right kidney. The patient's preoperative CT scan and MRI were reviewed. There was a solitary right renal artery wit h a large subcapsular hemorrhage involving the right kidney. MRI suggested active contrast extravasat ion. The risks, benefits and alternatives to the procedure were explained and verbal and written consent w as obtained. The site was prepped in sterile fashion. Full sterile technique was used, including ca p, mask, sterile gloves and gown and a large sterile sheet. Hand hygiene and 2% chlorhexidine and/or betadine/alcohol prep was utilized per protocol for cutaneous antisepsis. The skin and subcutaneous tissues were infiltrated with local anesthetic solution. With ultrasound and fluoroscopic guidance the right common femoral artery was punctured and a vascula r sheath was placed. Angiography of the common femoral artery was performed for evaluation prior to percutaneous closure device placement. A 4 [place] hook catheter was advanced into the abdominal aorta. The right renal artery was easily reyna ected. The catheter was advanced out into the distal right renal multiple angiographic runs were perf ormed using different obliquities. The examination demonstrates compression of the lateral margin of the renal cortex. No active bleedin g was seen. No neovascularity or underlying vascular lesion was identified within the renal cortex. Hemostasis was obtained with the prescribed medicated closure device. Conscious sedation was perform ed with the prescribed dosages and duration as above in the presence of an independent trained radiol ogy nurse to assist in the monitoring of the patient. EKG and oximetry remained stable throughout th e procedure. CONCLUSION: 1. No definite active bleeding was identified. No definite source for the patient's capsular hemorrha ge identified. Followup MRI in 3-6 months for further assessment would be warranted. Galindo Stevenson MD on December 12, 2016 at 12:53 Board Certified Radiologist. This report was verified electronically.
[2016-12-12] MEDS: SODIUM CHLOR 0.9% 1000 ML INJ 1,000 ML IV SCH ×2 (15:46→20:15)
[2016-12-13] VITALS (15 sets, daily range): BP systolic 116–161; BP diastolic 67–93; PULSE 86–103; RESP 16–22; TEMP 96.9–100.5; O2SAT 94–99
[2016-12-13] MEDS: HYDROmorphone HCL PF 1 MG/ML VIAL IV PUSH PRN ×3 (01:22→08:12)
[2016-12-13 03:10] LABS: HEMATOCRIT 23.2 % (39.0-51.0); REVIEW FLAG FINAL
[2016-12-13] MEDS: hydrALAZINE HCL 10 MG TAB PO SCH ×4 (03:12→19:57)
[2016-12-13] MEDS: SODIUM CHLOR 0.9% 1000 ML INJ 1,000 ML IV SCH ×4 (03:13→22:15)
[2016-12-13] MEDS: INSULIN ASPART SUPPLEMENTAL SCALE SQ SCH ×4 (06:44→20:00)
[2016-12-13 06:53] LABS: HEMATOCRIT 21.2 % (39.0-51.0); REVIEW FLAG FINAL
[2016-12-13] MEDS: SODIUM CHLORIDE 0.9% FLUSH 10 ML FLUSH IV FLUSH SCH ×2 (08:12→19:57)
--- NOTE | 2016-12-13 09:54 | HHI.PR ---
Subjective Patient symptoms today Pt seen and examined. Hgb down to 7.3 this AM. Slightly symptomatic with HR 90- 100's. B/P still elevated and not controlled. Objective Vital Signs Vital Signs Date Time Temp Pulse Resp B/P Pulse Ox O2 Delivery O2 Flow Rate FiO2 12/13/16 08:00 98.4 93 16 144/82 94 12/13/16 05:19 18 12/13/16 04:00 97.4 93 18 154/85 94 12/13/16 00:00 98.9 103 18 151/84 94 12/12/16 20:15 98.3 12/12/16 20:00 99.4 101 18 146/79 94 12/12/16 16:00 98.6 96 18 140/86 96 12/12/16 14:10 96 16 152/80 93 12/12/16 13:40 95 18 142/80 92 12/12/16 13:10 96 16 143/80 92 12/12/16 12:40 98 18 156/83 92 12/12/16 12:10 90 18 141/86 92 12/12/16 11:55 97 18 148/90 93 12/12/16 11:40 86 16 132/84 92 12/12/16 11:25 98.3 88 149/87 89 Result Diagram: 12/13/16 0504 12/12/16 0540 Objective Remarks Abd: soft,nd, tender on right side with palpation 12/13 Abd: soft,nd, tender on right side with palpation Right CVAT No gross hematuria; urine clear Medications and IVs Current Medications Medications (Trade) Dose Ordered Sig/Marie Route Start Time Stop Time Status Last Admin (NS 1000 ml Inj) 1,000 ml @ 100 mls/hr Q10H IV 12/10/16 23:40 12/13/16 03:13 (NS Flush) 2 ml UNSCH PRN IV FLUSH 12/10/16 23:45 (NS Flush) 2 ml BID IV FLUSH 12/11/16 09:00 (Narcan Inj) 0.4 mg UNSCH PRN IV 12/10/16 23:45 (Dilaudid Pf Inj) 0.5 mg Q3H PRN IV PUSH 12/11/16 08:27 12/13/16 08:12 (D50w (Vial) Inj) 50 ml UNSCH PRN IV 12/11/16 08:30 (Glucagon Inj) 1 mg UNSCH PRN OTHER 12/11/16 08:30 (Vasotec Inj) 1.25 mg Q6H PRN IV PUSH 12/11/16 08:30 Hydralazine HCl 10 mg 10 mg Q6H PO 12/11/16 15:00 12/13/16 08:12 (NS 1000 ml Inj) 1,000 ml @ 100 mls/hr Q10H IV 12/12/16 14:00 12/13/16 00:00 Assessment and Plan Assessment and Plan 46-year-old male with right intraparenchymal and perinephric hemorrhage of unclear etiology. Hemoglobin fairly stable at 14 down to 12.2. Recommend serial H&H every 6 hours. Transfusion as necessary. Bed rest for now. IV hydration. MRI with and without contrast of the abdomen currently pending. We'll need to repeat imaging study in 48 hours to assess for any further bleeding or expanding hematoma. Thank you for the consult and for allowing me to participate in the care of this patient. 12/12 46 y.o male with right intraparenchymal and perinephric hemorrhage of unclear etiology Transfuse 1 unit PRBC's today Recommend IR selective embolization to stop bleeding as pt is more symptomatic today and Hgb has dropped from 14 to 8.9 since admission and he is now tachycardic. NPO Discussion at length with the pt and understands the importance of stopping the bleeding. 12/13 46 y.o male with right intraparenchymal and perinephric hemorrhage of unclear etiology Hgb down to 7.3 Transfuse 2 units PRBC's today Bedrest Better HTN control No evidence of active bleeding per IR on angiogram. Continue to monitor Norman Ngo DO Dec 13, 2016 09:54
--- NOTE | 2016-12-13 11:13 | HHI.PR ---
Subjective Remarks in no acute distress. complaining of fatigue. has some right back pain. no BM. d/w the RN. Objective Vitals Vital Signs Date Time Temp Pulse Resp B/P Pulse Ox O2 Delivery O2 Flow Rate FiO2 12/13/16 08:00 98.4 93 16 144/82 94 12/13/16 05:19 18 12/13/16 04:00 97.4 93 18 154/85 94 12/13/16 00:00 98.9 103 18 151/84 94 12/12/16 20:15 98.3 12/12/16 20:00 99.4 101 18 146/79 94 12/12/16 16:00 98.6 96 18 140/86 96 12/12/16 14:10 96 16 152/80 93 12/12/16 13:40 95 18 142/80 92 12/12/16 13:10 96 16 143/80 92 12/12/16 12:40 98 18 156/83 92 12/12/16 12:10 90 18 141/86 92 12/12/16 11:55 97 18 148/90 93 12/12/16 11:40 86 16 132/84 92 12/12/16 11:25 98.3 88 149/87 89 I/O 12/12/16 12/12/16 12/12/16 12/13/16 12/13/16 12/13/16 07:00 15:00 23:00 07:00 15:00 23:00 Intake Total 785 ml Balance 785 ml Intake Oral 420 ml IV Total 365 ml # Voids 4 # Bowel Movements 0 Result Diagram: 12/13/16 0504 12/12/16 0540 Imaging Last Impressions Renal Arteriogram 12/12/16 0000 Signed Impressions: Service Date/Time: Monday, December 12, 2016 11:26 - CONCLUSION: 1. No definite active bleeding was identified. No definite source for the patient's capsular hemorrhage identified. Followup MRI in 3-6 months for further assessment would be warranted. Galindo Stevenson MD Abdomen MRI 12/11/16 0000 Signed Impressions: Service Date/Time: Sunday, December 11, 2016 10:51 - CONCLUSION: 1. Large subcapsular hemorrhage involving the right kidney measuring 12.1 x 10.3 x 9.0 cm which deforms the right renal cortex. There is contrast blush within the central portion of this hematoma suggesting ongoing hemorrhage. This may result in Page kidney on the right. Clinical correlation is recommended. Perinephric hemorrhage is also noted on the right. 2. Enlarged fatty liver. 3. Scoliosis of the lumbar spine. Eber Ruiz MD Abdomen/Pelvis CT 12/10/167 Signed Impressions: Service Date/Time: Saturday, December 10, 2016 22:25 - CONCLUSION: 1. Acute hemorrhage of the right kidney, most of the intraparenchymal and perinephric. Etiology uncertain. I don't see a stone or evidence of obstructive uropathy. No definite mass. 2. Tiny nonobstructing stone of the left kidney and a subcentimeter intermediate density nodule of the lower pole that is most likely a debris filled cyst. Nonemergent attempted further characterization with MRI of the abdomen with and without contrast recommended.. Jonah Landrum MD Objective Remarks GENERAL: This is a well-nourished, well-developed patient, in no apparent distress. CARDIOVASCULAR: Regular rate and regular rhythm without murmurs, gallops, or rubs. RESPIRATORY: Clear to auscultation. Breath sounds equal bilaterally. No wheezes , rales, or rhonchi. GASTROINTESTINAL: Abdomen soft, non-tender, nondistended. Normal, active bowel sounds MUSCULOSKELETAL: Extremities without clubbing, cyanosis, or edema. NEURO: Alert & Oriented x4 to person, place, time, situation. Moves all ext x4 Procedures renal arteriogram Medications and IVs Current Medications Ketorolac Tromethamine (Toradol Inj) 30 mg ONCE ONCE IVP Last administered on 12/10/16 22:18; Start 12/10/16 at 22:15; Stop 12/10/16 at 22:16; Status DC Ondansetron HCl (Zofran Inj) 4 mg ONCE ONCE IVP Last administered on 22:18; Start 12/10/16 at 22:15; Stop 12/10/16 at 22:16; Status DC Sodium Chloride (NS Flush) 2 ml UNSCH PRN IVF FLUSH AFTER USING IV ACCESS; Start 12/10/16 at 22:15; Stop 12/10/16 at 23:42; Status DC Hydromorphone HCl 1 mg 1 mg ONCE ONCE IVS Last administered on 12/10/16 22:19 ; Start 12/10/16 at 22:15; Stop 12/10/16 at 22:16; Status DC Sodium Chloride (NS 1000 ml Inj) 1,000 ml @ 999 mls/hr BOLUS ONCE IV Last administered on 12/10/16 22:19; Start 12/10/16 at 22:15; Stop 12/10/16 at 23:15 ; Status DC Potassium Chloride 20 meq 20 meq ONCE ONCE PO Last administered on 12/10/16 23:12; Start 12/10/16 at 23:15; Stop 12/10/16 at 23:16; Status DC Sodium Chloride (NS 1000 ml Inj) 1,000 ml @ 100 mls/hr Q10H IV Last administered on 12/13/16 03:13; Start 12/10/16 at 23:40 Sodium Chloride (NS Flush) 2 ml UNSCH PRN IV FLUSH FLUSH AFTER USING IV ACCESS ; Start 12/10/16 at 23:45 Sodium Chloride (NS Flush) 2 ml BID IV FLUSH ; Start 12/11/16 at 09:00 Naloxone HCl (Narcan Inj) 0.4 mg UNSCH PRN IV SEE LABEL COMMENTS; Start at 23:45 Hydromorphone HCl (Dilaudid Pf Inj) 0.5 mg Q4H PRN IV PUSH FLUSH AFTER USING IV ACCESS Last administered on 12/11/16 05:14; Start 12/10/16 at 23:45; Stop at 08:31; Status DC Hydromorphone HCl (Dilaudid Pf Inj) 0.5 mg Q3H PRN IV PUSH PAIN SCALE 6 TO 10 Last administered on 12/13/16 08:12; Start 12/11/16 at 08:27 Dextrose (D50w (Vial) Inj) 50 ml UNSCH PRN IV HYPOGLYCEMIA-SEE COMMENTS; Start 12/11/16 at 08:30 Glucagon (Glucagon Inj) 1 mg UNSCH PRN OTHER HYPOGLYCEMIA-SEE COMMENTS; Start 12/11/16 at 08:30 Insulin Aspart (NovoLOG SUPPLEMENTAL SCALE) 1 ACHS SLIDING SCALE SQ Last administered on 12/11/16 16:17; Start 12/11/16 at 11:00 Enalaprilat (Vasotec Inj) 1.25 mg Q6H PRN IV PUSH SBP> OR = 180, DBP> OR = 100 ; Start 12/11/16 at 08:30 Gadodiamide (Omniscan Pf Inj) 20 ml STK-MED ONCE IV Last administered on 12:28; Start 12/11/16 at 12:28; Stop 12/11/16 at 12:29; Status DC Hydralazine HCl 10 mg 10 mg Q6H PO Last administered on 12/13/16 08:12; Start 12/11/16 at 15:00 Sodium Chloride (NS 250 ml Inj) 250 ml @ 15 mls/hr ONCE ONCE IV ; Start at 07:30; Stop 12/13/16 at 00:09; Status DC Midazolam HCl (Versed Inj) 5 mg STK-MED ONCE .ROUTE Last administered on 10:43; Start 12/12/16 at 10:43; Stop 12/12/16 at 10:44; Status DC Fentanyl Citrate (fentaNYL INJ) 250 mcg STK-MED ONCE .ROUTE Last administered on 12/12/16 10:43; Start 12/12/16 at 10:43; Stop 12/12/16 at 10:44; Status DC Iodixanol 50 ml 50 ml STK-MED ONCE I-ARTERIAL Last administered on 12/12/16 11 :21; Start 12/12/16 at 11:21; Stop 12/12/16 at 11:22; Status DC Cefazolin Sodium/ Dextrose 50 ml @ As Directed STK-MED ONCE .ROUTE Last administered on 12/12/16 11:29; Start 12/12/16 at 11:29; Stop 12/12/16 at 11:30 ; Status DC Sodium Chloride (NS 1000 ml Inj) 1,000 ml @ 75 mls/hr [id number] IV Last administered on 12/13/16 00:00; Start 12/12/16 at 14:00 A/P Assessment and Plan A/P - Right renal hemorrhage: Uncertain etiology. MRI shows increasing subcapsular blood collection. s/p renal arteriogram with no active bleeding. urology following. -acute anemia due to blood loss; will transfuse with PRBC today- continue to monitor H/H. - Hypertension: Continue hydralazine. Vasotec as needed. - Leukocytosis: Possibly stress reaction versus infection. Monitor labs. - Hyperglycemia: No documented history of diabetes. Hemoglobin A1c is 6. Monitor Accu-Cheks and cover with sliding scale insulin. -constipation; laxatives as needed. - DVT prophylaxis: SCDs, CHERYL march. Avoid chemical prophylaxis secondary to renal hemorrhage. Bal Kirkland MD Dec 13, 2016 11:13
[2016-12-13] MEDS ORDERED: ACETAMINOPHEN/HYDROcodone 325 MG/5 MG TAB PO PRN (11:15)
[2016-12-13] MEDS: ACETAMINOPHEN/HYDROcodone 325 MG/5 MG TAB PO PRN ×2 (13:06→17:28)
[2016-12-13] MEDS: DOCUSATE SODIUM 100 MG CAP PO PRN (17:03)
[2016-12-14] VITALS (8 sets, daily range): BP systolic 140–155; BP diastolic 77–91; PULSE 75–95; RESP 16–18; TEMP 97.2–99.2; O2SAT 95–97
[2016-12-14] MEDS: hydrALAZINE HCL 10 MG TAB PO SCH ×4 (02:48→20:39)
[2016-12-14] MEDS: ACETAMINOPHEN/HYDROcodone 325 MG/5 MG TAB PO PRN ×2 (03:55→17:49)
[2016-12-14] MEDS: INSULIN ASPART SUPPLEMENTAL SCALE SQ SCH (04:19)
--- NOTE | 2016-12-14 09:21 | HHI.PR ---
Subjective Patient symptoms today Pt feeling better s/p 2U PRBC's. Color improved. Vitals stable. AM labs pending. Objective Vital Signs Vital Signs Date Time Temp Pulse Resp B/P Pulse Ox O2 Delivery O2 Flow Rate FiO2 12/14/16 08:00 97.4 75 16 154/91 96 12/14/16 07:24 83 12/14/16 04:55 16 12/14/16 04:00 98.9 92 18 140/83 95 12/14/16 00:00 98.3 95 18 148/79 95 12/13/16 23:44 16 12/13/16 20:00 96.9 96 18 161/91 97 12/13/16 18:40 98.9 88 20 135/81 98 12/13/16 17:28 99.0 97 20 155/67 97 12/13/16 17:12 98.1 99 20 134/81 99 12/13/16 17:07 98.1 93 20 134/81 99 12/13/16 16:00 97.8 86 16 142/85 96 12/13/16 15:19 98.7 88 20 116/77 95 12/13/16 14:29 99.7 12/13/16 13:40 99.4 12/13/16 13:25 100.5 96 22 151/92 94 12/13/16 13:07 99.0 94 20 150/93 96 12/13/16 12:00 99.7 95 18 132/75 95 Result Diagram: 12/13/16 0504 12/12/16 0540 Objective Remarks Abd: soft,nd, tender on right side with palpation 12/13 Abd: soft,nd, tender on right side with palpation Right CVAT No gross hematuria; urine clear 12/14 Abd: soft,nd, tenderness improved No gross hematuria; urine clear Medications and IVs Current Medications Medications (Trade) Dose Ordered Sig/Marie Route Start Time Stop Time Status Last Admin (NS Flush) 2 ml UNSCH PRN IV FLUSH 12/10/16 23:45 (NS Flush) 2 ml BID IV FLUSH 12/11/16 09:00 (Narcan Inj) 0.4 mg UNSCH PRN IV 12/10/16 23:45 (Dilaudid Pf Inj) 0.5 mg Q3H PRN IV PUSH 12/11/16 08:27 12/13/16 08:12 (D50w (Vial) Inj) 50 ml UNSCH PRN IV 12/11/16 08:30 (Glucagon Inj) 1 mg UNSCH PRN OTHER 12/11/16 08:30 (Vasotec Inj) 1.25 mg Q6H PRN IV PUSH 12/11/16 08:30 Hydralazine HCl 10 mg 10 mg Q6H PO 12/11/16 15:00 12/14/16 02:48 (NS 1000 ml Inj) 1,000 ml @ 75 mls/hr [id number] IV 12/12/16 14:00 12/13/16 00:00 (Colace) 100 mg BID PRN PO 12/13/16 11:15 12/13/16 17:03 ([place] 5-325 Mg) 1 tab Q4H PRN PO 12/13/16 11:15 12/13/16 22:15 ([place] 5-325 Mg) 2 tab Q4H PRN PO 12/13/16 11:15 12/14/16 03:55 Assessment and Plan Assessment and Plan 46-year-old male with right intraparenchymal and perinephric hemorrhage of unclear etiology. Hemoglobin fairly stable at 14 down to 12.2. Recommend serial H&H every 6 hours. Transfusion as necessary. Bed rest for now. IV hydration. MRI with and without contrast of the abdomen currently pending. We'll need to repeat imaging study in 48 hours to assess for any further bleeding or expanding hematoma. Thank you for the consult and for allowing me to participate in the care of this patient. 12/12 46 y.o male with right intraparenchymal and perinephric hemorrhage of unclear etiology Transfuse 1 unit PRBC's today Recommend IR selective embolization to stop bleeding as pt is more symptomatic today and Hgb has dropped from 14 to 8.9 since admission and he is now tachycardic. NPO Discussion at length with the pt and understands the importance of stopping the bleeding. 12/13 46 y.o male with right intraparenchymal and perinephric hemorrhage of unclear etiology Hgb down to 7.3 Transfuse 2 units PRBC's today Bedrest Better HTN control No evidence of active bleeding per IR on angiogram. Continue to monitor 12/14 46 y.o male with right intraparenchymal and perinephric hemorrhage of unclear etiology Heplock IVF AM labs pending If stable in AM and labs unchanged; d/c home. F/U 1 week: H/H prior to visit Norman Ngo DO Dec 14, 2016 09:21
[2016-12-14 09:32] LABS: AUTOMATED NEUTROPHIL # 8.6 TH/MM3 (1.8-7.7); BASOPHIL % 0.2 % (0.0-2.0); EOSINOPHIL # 0.2 TH/MM3 (0-0.4); EOSINOPHIL % 1.8 % (0.0-4.0); HEMATOCRIT 29.2 % (39.0-51.0); HEMO FLAGS DIFF FINAL; LYMPH % 14.7 % (9.0-44.0); LYMPHOCYTE # 1.7 TH/MM3 (1.0-4.8); MEAN CELL VOLUME 89.1 FL (80.0-100.0); MEAN CORPUSCULAR HEMOGLOBIN 29.5 PG (27.0-34.0); MEAN CORPUSCULAR HGB CONC 33.1 % (32.0-36.0); NEUT % 73.3 % (16.0-70.0); PLATELET COUNT 284 TH/MM3 (150-450); RED BLOOD COUNT 3.28 MIL/MM3 (4.50-5.90); RED CELL DISTRIBUTION WIDTH 16.9 % (11.6-17.2); WHITE BLOOD COUNT 11.7 TH/MM3 (4.0-11.0)
[2016-12-14] MEDS: SODIUM CHLORIDE 0.9% FLUSH 10 ML FLUSH IV FLUSH SCH ×2 (10:05→20:39)
[2016-12-14] MEDS: DOCUSATE SODIUM 100 MG CAP PO PRN (10:08)
--- NOTE | 2016-12-14 11:47 | HHI.PR ---
Subjective Remarks in no acute distress. pain seems to be improving. no new complaints. Objective Vitals Vital Signs Date Time Temp Pulse Resp B/P Pulse Ox O2 Delivery O2 Flow Rate FiO2 12/14/16 08:00 97.4 75 16 154/91 96 12/14/16 07:24 83 12/14/16 04:55 16 12/14/16 04:00 98.9 92 18 140/83 95 12/14/16 00:00 98.3 95 18 148/79 95 12/13/16 23:44 16 12/13/16 20:00 96.9 96 18 161/91 97 12/13/16 18:40 98.9 88 20 135/81 98 12/13/16 17:28 99.0 97 20 155/67 97 12/13/16 17:12 98.1 99 20 134/81 99 12/13/16 17:07 98.1 93 20 134/81 99 12/13/16 16:00 97.8 86 16 142/85 96 12/13/16 15:19 98.7 88 20 116/77 95 12/13/16 14:29 99.7 12/13/16 13:40 99.4 12/13/16 13:25 100.5 96 22 151/92 94 12/13/16 13:07 99.0 94 20 150/93 96 12/13/16 12:00 99.7 95 18 132/75 95 I/O 12/13/16 12/13/16 12/13/16 12/14/16 12/14/16 12/14/16 07:00 15:00 23:00 07:00 15:00 23:00 Intake Total 120 ml 1599 ml Balance 120 ml 1599 ml Intake Oral 120 ml 480 ml IV Total 789 ml Packed Cells 330 ml # Voids 3 4 # Bowel Movements 0 Result Diagram: 12/14/16 0844 12/12/16 0540 Imaging Last Impressions Renal Arteriogram 12/12/16 0000 Signed Impressions: Service Date/Time: Monday, December 12, 2016 11:26 - CONCLUSION: 1. No definite active bleeding was identified. No definite source for the patient's capsular hemorrhage identified. Followup MRI in 3-6 months for further assessment would be warranted. Galindo Stevenson MD Abdomen MRI 12/11/16 0000 Signed Impressions: Service Date/Time: Sunday, December 11, 2016 10:51 - CONCLUSION: 1. Large subcapsular hemorrhage involving the right kidney measuring 12.1 x 10.3 x 9.0 cm which deforms the right renal cortex. There is contrast blush within the central portion of this hematoma suggesting ongoing hemorrhage. This may result in Page kidney on the right. Clinical correlation is recommended. Perinephric hemorrhage is also noted on the right. 2. Enlarged fatty liver. 3. Scoliosis of the lumbar spine. Eber Ruiz MD Abdomen/Pelvis CT 12/10/162202 Signed Impressions: Service Date/Time: Saturday, December 10, 2016 22:25 - CONCLUSION: 1. Acute hemorrhage of the right kidney, most of the intraparenchymal and perinephric. Etiology uncertain. I don't see a stone or evidence of obstructive uropathy. No definite mass. 2. Tiny nonobstructing stone of the left kidney and a subcentimeter intermediate density nodule of the lower pole that is most likely a debris filled cyst. Nonemergent attempted further characterization with MRI of the abdomen with and without contrast recommended.. Jonah Landrum MD Objective Remarks GENERAL: This is a well-nourished, well-developed patient, in no apparent distress. CARDIOVASCULAR: Regular rate and regular rhythm without murmurs, gallops, or rubs. RESPIRATORY: Clear to auscultation. Breath sounds equal bilaterally. No wheezes , rales, or rhonchi. GASTROINTESTINAL: Abdomen soft, non-tender, nondistended. Normal, active bowel sounds MUSCULOSKELETAL: Extremities without clubbing, cyanosis, or edema. NEURO: Alert & Oriented x4 to person, place, time, situation. Moves all ext x4 Procedures renal arteriogram Medications and IVs Current Medications Ketorolac Tromethamine (Toradol Inj) 30 mg ONCE ONCE IVP Last administered on 12/10/16 22:18; Start 12/10/16 at 22:15; Stop 12/10/16 at 22:16; Status DC Ondansetron HCl (Zofran Inj) 4 mg ONCE ONCE IVP Last administered on 22:18; Start 12/10/16 at 22:15; Stop 12/10/16 at 22:16; Status DC Sodium Chloride (NS Flush) 2 ml UNSCH PRN IVF FLUSH AFTER USING IV ACCESS; Start 12/10/16 at 22:15; Stop 12/10/16 at 23:42; Status DC Hydromorphone HCl 1 mg 1 mg ONCE ONCE IVS Last administered on 12/10/16 22:19 ; Start 12/10/16 at 22:15; Stop 12/10/16 at 22:16; Status DC Sodium Chloride (NS 1000 ml Inj) 1,000 ml @ 999 mls/hr BOLUS ONCE IV Last administered on 12/10/16 22:19; Start 12/10/16 at 22:15; Stop 12/10/16 at 23:15 ; Status DC Potassium Chloride 20 meq 20 meq ONCE ONCE PO Last administered on 12/10/16 23:12; Start 12/10/16 at 23:15; Stop 12/10/16 at 23:16; Status DC Sodium Chloride (NS 1000 ml Inj) 1,000 ml @ 100 mls/hr Q10H IV Last administered on 12/13/16 03:13; Start 12/10/16 at 23:40; Stop 12/13/16 at 11:16 ; Status DC Sodium Chloride (NS Flush) 2 ml UNSCH PRN IV FLUSH FLUSH AFTER USING IV ACCESS ; Start 12/10/16 at 23:45 Sodium Chloride (NS Flush) 2 ml BID IV FLUSH Last administered on 12/14/16 10: 05; Start 12/11/16 at 09:00 Naloxone HCl (Narcan Inj) 0.4 mg UNSCH PRN IV SEE LABEL COMMENTS; Start at 23:45 Hydromorphone HCl (Dilaudid Pf Inj) 0.5 mg Q4H PRN IV PUSH FLUSH AFTER USING IV ACCESS Last administered on 12/11/16 05:14; Start 12/10/16 at 23:45; Stop at 08:31; Status DC Hydromorphone HCl (Dilaudid Pf Inj) 0.5 mg Q3H PRN IV PUSH BREAKTHROUGH PAIN Last administered on 12/13/16 08:12; Start 12/11/16 at 08:27 Dextrose (D50w (Vial) Inj) 50 ml UNSCH PRN IV HYPOGLYCEMIA-SEE COMMENTS; Start 12/11/16 at 08:30 Glucagon (Glucagon Inj) 1 mg UNSCH PRN OTHER HYPOGLYCEMIA-SEE COMMENTS; Start 12/11/16 at 08:30 Insulin Aspart (NovoLOG SUPPLEMENTAL SCALE) 1 ACHS SLIDING SCALE SQ Last administered on 12/11/16 16:17; Start 12/11/16 at 11:00 Enalaprilat (Vasotec Inj) 1.25 mg Q6H PRN IV PUSH SBP> OR = 180, DBP> OR = 100 ; Start 12/11/16 at 08:30 Gadodiamide (Omniscan Pf Inj) 20 ml STK-MED ONCE IV Last administered on 12:28; Start 12/11/16 at 12:28; Stop 12/11/16 at 12:29; Status DC Hydralazine HCl 10 mg 10 mg Q6H PO Last administered on 12/14/16 10:04; Start 12/11/16 at 15:00 Sodium Chloride (NS 250 ml Inj) 250 ml @ 15 mls/hr ONCE ONCE IV ; Start at 07:30; Stop 12/13/16 at 00:09; Status DC Midazolam HCl (Versed Inj) 5 mg STK-MED ONCE .ROUTE Last administered on 10:43; Start 12/12/16 at 10:43; Stop 12/12/16 at 10:44; Status DC Fentanyl Citrate (fentaNYL INJ) 250 mcg STK-MED ONCE .ROUTE Last administered on 12/12/16 10:43; Start 12/12/16 at 10:43; Stop 12/12/16 at 10:44; Status DC Iodixanol 50 ml 50 ml STK-MED ONCE I-ARTERIAL Last administered on 12/12/16 11 :21; Start 12/12/16 at 11:21; Stop 12/12/16 at 11:22; Status DC Cefazolin Sodium/ Dextrose 50 ml @ As Directed STK-MED ONCE .ROUTE Last administered on 12/12/16 11:29; Start 12/12/16 at 11:29; Stop 12/12/16 at 11:30 ; Status DC Sodium Chloride (NS 1000 ml Inj) 1,000 ml @ 75 mls/hr [id number] IV Last administered on 12/13/16 00:00; Start 12/12/16 at 14:00; Stop 12/14/16 at 09:22 ; Status DC Docusate Sodium (Colace) 100 mg BID PRN PO CONSTIPATION Last administered on 10:08; Start 12/13/16 at 11:15 Acetaminophen/ Hydrocodone Bitart ([place] 5-325 Mg) 1 tab Q4H PRN PO PAIN < 5 Last administered on 12/13/16 22:15; Start 12/13/16 at 11:15 Acetaminophen/ Hydrocodone Bitart ([place] 5-325 Mg) 2 tab Q4H PRN PO PAIN > 5 Last administered on 12/14/16 03:55; Start 12/13/16 at 11:15 A/P Assessment and Plan A/P - Right renal hemorrhage: Uncertain etiology. MRI shows increasing subcapsular blood collection. s/p renal arteriogram with no active bleeding. urology follow-up appreciated. -acute anemia due to blood loss; transfused with PRBC - continue to monitor H/ H. - Hypertension: Continue hydralazine. Vasotec as needed. - Leukocytosis: Possibly stress reaction versus infection. Monitor labs. - Hyperglycemia:likley reactive. No documented history of diabetes. Hemoglobin A1c is 6. dc sliding scale. -constipation; laxatives as needed. - DVT prophylaxis: SCDs, CHERYL hose. Avoid chemical prophylaxis secondary to renal hemorrhage. Discharge Planning dc home tomorrow if stable. Bal Kirkland MD Dec 14, 2016 11:47
[2016-12-14 12:37] LABS: BICARBONATE 24.7 MEQ/L (21.0-32.0)
[2016-12-14 12:47] LABS: POTASSIUM 2.9 MEQ/L (3.5-5.1)
[2016-12-14] MEDS ORDERED: POTASSIUM CHLORIDE 10 MEQ CONTROLLED RELEASE TAB PO ONE ×2 (13:45→18:00)
[2016-12-14] MEDS ORDERED: POTASSIUM CHLORIDE 20 MEQ CONTROLLED RELEASE TAB PO ONE (20:00)
[2016-12-15] VITALS: BP 145/91; PULSE 81; RESP 18; TEMP 97.1; O2SAT 98
--- NOTE | 2016-12-15 01:51 | RADRPT ---
EXAM DATE/TIME: 12/15/2016 01:24 [facility] COMPARISON: No previous studies available for comparison. INDICATIONS : Left leg swelling. MEDICAL HISTORY : Hypertension. Renal hemorrhage. SURGICAL HISTORY : Hemorrhoidectomy. ENCOUNTER: Initial ACUITY: 1 day PAIN SCORE: 2/10 LOCATION: Left leg. TECHNIQUE: Venous ultrasound of the leg was performed from the inguinal ligament to the proximal calf. Real-aranza e, color Doppler and spectral tracing, compression and augmentation techniques were used. FINDINGS: There is normal compressibility of the deep venous system from the inguinal region to the proximal ca lf. No echogenic clot is seen in the lumen of the common femoral, femoral, popliteal, and posterior tibial veins. There is a normal response of the venous system to proximal and distal augmentation an d respiration. CONCLUSION: 1. Negative for deep venous thrombosis. Borderline enlarged left inguinal lymph node. Elvin Jackson MD on December 15, 2016 at 1:49 Board Certified Radiologist. This report was verified electronically.
[2016-12-15] MEDS: hydrALAZINE HCL 10 MG TAB PO SCH ×2 (02:59→09:28)
[2016-12-15 04:00] VITALS: BP 136/83; PULSE 84; RESP 18; TEMP 99.1; O2SAT 97
[2016-12-15 06:50] LABS: HEMATOCRIT 29.5 % (39.0-51.0); MEAN CORPUSCULAR HEMOGLOBIN 30.3 PG (27.0-34.0); MEAN CORPUSCULAR HGB CONC 34.5 % (32.0-36.0); PLATELET COUNT 368 TH/MM3 (150-450); RED BLOOD COUNT 3.35 MIL/MM3 (4.50-5.90); RED CELL DISTRIBUTION WIDTH 16.6 % (11.6-17.2); REVIEW FLAG FINAL; WHITE BLOOD COUNT 12.7 TH/MM3 (4.0-11.0)
[2016-12-15 07:14] LABS: BICARBONATE 25.9 MEQ/L (21.0-32.0); POTASSIUM 3.8 MEQ/L (3.5-5.1)
[2016-12-15 08:00] VITALS: BP 171/102; PULSE 85; RESP 19; TEMP 96.8; O2SAT 98
[2016-12-15] MEDS: SODIUM CHLORIDE 0.9% FLUSH 10 ML FLUSH IV FLUSH SCH (09:28)
[2016-12-15] MEDS ORDERED: HYDR-3799 PO (09:42)
--- NOTE | 2016-12-15 09:42 | HHI.PR ---
Subjective Remarks resting comfortably with no acute distress. no new complaints. d/w the RN and no acute issues over night. wants to go home today. Objective Vitals Vital Signs Date Time Temp Pulse Resp B/P Pulse Ox O2 Delivery O2 Flow Rate FiO2 12/15/16 08:00 96.8 85 19 171/102 98 12/15/16 04:00 99.1 84 18 136/83 97 12/15/16 00:00 97.1 81 18 145/91 98 12/14/16 20:27 85 12/14/16 20:00 97.2 87 18 149/82 96 12/14/16 15:56 99.2 93 16 146/86 96 12/14/16 12:00 98.7 87 18 155/77 97 I/O 12/14/16 12/14/16 12/14/16 12/15/16 12/15/16 12/15/16 07:00 15:00 23:00 07:00 15:00 23:00 Intake Total 990 ml 480 ml 960 ml Balance 990 ml 480 ml 960 ml Intake Oral 840 ml 480 ml 960 ml IV Total 150 ml # Voids 4 3 2 4 # Bowel Movements 1 Result Diagram: 12/15/16 0613 12/15/16 0613 Imaging Last Impressions Lower Extremity Ultrasound 12/14/16 0000 Signed Impressions: Service Date/Time: Thursday, December 15, 2016 01:24 - CONCLUSION: 1. Negative for deep venous thrombosis. Borderline enlarged left inguinal lymph node. Elvin Jackson MD Renal Arteriogram 12/12/16 0000 Signed Impressions: Service Date/Time: Monday, December 12, 2016 11:26 - CONCLUSION: 1. No definite active bleeding was identified. No definite source for the patient's capsular hemorrhage identified. Followup MRI in 3-6 months for further assessment would be warranted. Galindo Stevenson MD Abdomen MRI 12/11/16 0000 Signed Impressions: Service Date/Time: Sunday, December 11, 2016 10:51 - CONCLUSION: 1. Large subcapsular hemorrhage involving the right kidney measuring 12.1 x 10.3 x 9.0 cm which deforms the right renal cortex. There is contrast blush within the central portion of this hematoma suggesting ongoing hemorrhage. This may result in Page kidney on the right. Clinical correlation is recommended. Perinephric hemorrhage is also noted on the right. 2. Enlarged fatty liver. 3. Scoliosis of the lumbar spine. Eber Ruiz MD Abdomen/Pelvis CT 12/10/162202 Signed Impressions: Service Date/Time: Saturday, December 10, 2016 22:25 - CONCLUSION: 1. Acute hemorrhage of the right kidney, most of the intraparenchymal and perinephric. Etiology uncertain. I don't see a stone or evidence of obstructive uropathy. No definite mass. 2. Tiny nonobstructing stone of the left kidney and a subcentimeter intermediate density nodule of the lower pole that is most likely a debris filled cyst. Nonemergent attempted further characterization with MRI of the abdomen with and without contrast recommended.. Jonah Landrum MD Objective Remarks GENERAL: This is a well-nourished, well-developed patient, in no apparent distress. CARDIOVASCULAR: Regular rate and regular rhythm without murmurs, gallops, or rubs. RESPIRATORY: Clear to auscultation. Breath sounds equal bilaterally. No wheezes , rales, or rhonchi. GASTROINTESTINAL: Abdomen soft, non-tender, nondistended. Normal, active bowel sounds MUSCULOSKELETAL: Extremities without clubbing, cyanosis, or edema. NEURO: Alert & Oriented x4 to person, place, time, situation. Moves all ext x4 Procedures renal arteriogram Medications and IVs Current Medications Ketorolac Tromethamine (Toradol Inj) 30 mg ONCE ONCE IVP Last administered on 12/10/16 22:18; Start 12/10/16 at 22:15; Stop 12/10/16 at 22:16; Status DC Ondansetron HCl (Zofran Inj) 4 mg ONCE ONCE IVP Last administered on 22:18; Start 12/10/16 at 22:15; Stop 12/10/16 at 22:16; Status DC Sodium Chloride (NS Flush) 2 ml UNSCH PRN IVF FLUSH AFTER USING IV ACCESS; Start 12/10/16 at 22:15; Stop 12/10/16 at 23:42; Status DC Hydromorphone HCl 1 mg 1 mg ONCE ONCE IVS Last administered on 12/10/16 22:19 ; Start 12/10/16 at 22:15; Stop 12/10/16 at 22:16; Status DC Sodium Chloride (NS 1000 ml Inj) 1,000 ml @ 999 mls/hr BOLUS ONCE IV Last administered on 12/10/16 22:19; Start 12/10/16 at 22:15; Stop 12/10/16 at 23:15 ; Status DC Potassium Chloride 20 meq 20 meq ONCE ONCE PO Last administered on 12/10/16 23:12; Start 12/10/16 at 23:15; Stop 12/10/16 at 23:16; Status DC Sodium Chloride (NS 1000 ml Inj) 1,000 ml @ 100 mls/hr Q10H IV Last administered on 12/13/16 03:13; Start 12/10/16 at 23:40; Stop 12/13/16 at 11:16 ; Status DC Sodium Chloride (NS Flush) 2 ml UNSCH PRN IV FLUSH FLUSH AFTER USING IV ACCESS ; Start 12/10/16 at 23:45 Sodium Chloride (NS Flush) 2 ml BID IV FLUSH Last administered on 12/14/16 20: 39; Start 12/11/16 at 09:00 Naloxone HCl (Narcan Inj) 0.4 mg UNSCH PRN IV SEE LABEL COMMENTS; Start at 23:45 Hydromorphone HCl (Dilaudid Pf Inj) 0.5 mg Q4H PRN IV PUSH FLUSH AFTER USING IV ACCESS Last administered on 12/11/16 05:14; Start 12/10/16 at 23:45; Stop at 08:31; Status DC Hydromorphone HCl (Dilaudid Pf Inj) 0.5 mg Q3H PRN IV PUSH BREAKTHROUGH PAIN Last administered on 12/13/16 08:12; Start 12/11/16 at 08:27 Dextrose (D50w (Vial) Inj) 50 ml UNSCH PRN IV HYPOGLYCEMIA-SEE COMMENTS; Start 12/11/16 at 08:30 Glucagon (Glucagon Inj) 1 mg UNSCH PRN OTHER HYPOGLYCEMIA-SEE COMMENTS; Start 12/11/16 at 08:30 Insulin Aspart (NovoLOG SUPPLEMENTAL SCALE) 1 ACHS SLIDING SCALE SQ Last administered on 12/11/16 16:17; Start 12/11/16 at 11:00; Stop 12/14/16 at 11:48 ; Status DC Enalaprilat (Vasotec Inj) 1.25 mg Q6H PRN IV PUSH SBP> OR = 180, DBP> OR = 100 ; Start 12/11/16 at 08:30 Gadodiamide (Omniscan Pf Inj) 20 ml STK-MED ONCE IV Last administered on 12:28; Start 12/11/16 at 12:28; Stop 12/11/16 at 12:29; Status DC Hydralazine HCl 10 mg 10 mg Q6H PO Last administered on 12/15/16 02:59; Start 12/11/16 at 15:00 Sodium Chloride (NS 250 ml Inj) 250 ml @ 15 mls/hr ONCE ONCE IV ; Start at 07:30; Stop 12/13/16 at 00:09; Status DC Midazolam HCl (Versed Inj) 5 mg STK-MED ONCE .ROUTE Last administered on 10:43; Start 12/12/16 at 10:43; Stop 12/12/16 at 10:44; Status DC Fentanyl Citrate (fentaNYL INJ) 250 mcg STK-MED ONCE .ROUTE Last administered on 12/12/16 10:43; Start 12/12/16 at 10:43; Stop 12/12/16 at 10:44; Status DC Iodixanol 50 ml 50 ml STK-MED ONCE I-ARTERIAL Last administered on 12/12/16 11 :21; Start 12/12/16 at 11:21; Stop 12/12/16 at 11:22; Status DC Cefazolin Sodium/ Dextrose 50 ml @ As Directed STK-MED ONCE .ROUTE Last administered on 12/12/16 11:29; Start 12/12/16 at 11:29; Stop 12/12/16 at 11:30 ; Status DC Sodium Chloride (NS 1000 ml Inj) 1,000 ml @ 75 mls/hr [id number] IV Last administered on 12/13/16 00:00; Start 12/12/16 at 14:00; Stop 12/14/16 at 09:22 ; Status DC Docusate Sodium (Colace) 100 mg BID PRN PO CONSTIPATION Last administered on 10:08; Start 12/13/16 at 11:15 Acetaminophen/ Hydrocodone Bitart (Termo 5-325 Mg) 1 tab Q4H PRN PO PAIN < 5 Last administered on 12/13/16 22:15; Start 12/13/16 at 11:15 Acetaminophen/ Hydrocodone Bitart (Termo 5-325 Mg) 2 tab Q4H PRN PO PAIN > 5 Last administered on 12/14/16 17:49; Start 12/13/16 at 11:15 Potassium Chloride (KCl) 30 meq ONCE ONCE PO Last administered on 12/14/16 14 :11; Start 12/14/16 at 13:45; Stop 12/14/16 at 13:51; Status DC Potassium Chloride (KCl) 30 meq ONCE ONCE PO Last administered on 12/14/16 17 :46; Start 12/14/16 at 18:00; Stop 12/14/16 at 18:01; Status DC Potassium Chloride (KCl) 20 meq ONCE ONCE PO Last administered on 12/14/16 20 :39; Start 12/14/16 at 20:00; Stop 12/14/16 at 20:01; Status DC A/P Assessment and Plan A/P - Right renal hemorrhage: Uncertain etiology. MRI shows increasing subcapsular blood collection. s/p renal arteriogram with no active bleeding. urology follow-up appreciated. cleared for discharge per urology with outpatient f/u. -acute anemia due to blood loss; transfused with PRBC - H/H improved and stable. - Hypertension: Continue hydralazine. f/u as outpatient. - Leukocytosis: Possibly stress reaction - afebrile. -left borderline-enlarged inguinal lymph node; f/u as outpatient and this was d/ w the patient. - Hyperglycemia:likley reactive. No documented history of diabetes. Hemoglobin A1c is 6. -constipation; laxatives as needed. - DVT prophylaxis: SCDs, CHERYL hose. Avoid chemical prophylaxis secondary to renal hemorrhage. Discharge Planning dc home today. see med list. f/u with pcp and urology. CBC as outpatient. d/w the patient, RN. d/w . time spent 31 min. Bal Kirkland MD Dec 15, 2016 09:41
--- NOTE | 2016-12-15 09:43 | HHI.DCPOC ---
Discharge Care Plan Diagnosis: (1) Renal hemorrhage, right Your Health Problems Are: Bleeding Tendency Goals to Promote Your Health * To prevent worsening of your condition and complications * To maintain your health at the optimal level Directions to Meet Your Goals Take your medications as prescribed Follow your dietary instruction Follow activity as directed Keep your appointments as scheduled Take your immunizations and boosters as scheduled If your symptoms worsen call your PCP, if no PCP go to Urgent Care Center or Emergency Room Smoking is Dangerous to Your Health. Avoid second hand smoke Call the 24-hour hour crisis hotline for domestic abuse at Bal Kirkland MD Dec 15, 2016 09:43
--- NOTE | 2016-12-15 09:45 | HHI.DS ---
Discharge Summary Admission Date Dec 12, 2016 at 07:44 Discharge Date: Dec 15, 2016 Admitting Diagnosis RENAL HEMORRHAGE (1) Renal hemorrhage, right ICD Code: N28.89 Diagnosis: Principal (2) Hypertension ICD Code: I10 Diagnosis: Secondary (3) Acute blood loss anemia ICD Code: D62 Diagnosis: Principal Procedures renal arteriogram Brief History - From Admission The patient is a 46-year-old male who developed sudden onset of right flank pain while at work last night. 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 He states that the pain was severe and has not improved. It does respond to the pain medication, but only for a short time. Currently pain is 9/10. He has never had similar pain previously. He reports nausea and multiple episodes of vomiting on the way to the ER last night. He has had subjective fever and chills. Denies dysuria. CBC/BMP: 12/15/16 0613 12/15/16 0613 Significant Findings Laboratory Tests Test 12/13/16 12/13/16 12/14/16 12/14/16 02:58 05:04 08:44 11:21 Hemoglobin 7.8 GM/DL 7.3 GM/DL 9.7 GM/DL (13.0-17.0) (13.0-17.0) (13.0-17.0) Hematocrit 23.2 % 21.2 % 29.2 % (39.0-51.0) (39.0-51.0) (39.0-51.0) White Blood Count 11.7 TH/MM3 (4.0-11.0) Red Blood Count 3.28 MIL/MM3 (4.50-5.90) Neutrophils (%) (Auto) 73.3 % (16.0-70.0) Monocytes (%) (Auto) 10.0 % (0.0-8.0) Neutrophils # (Auto) 8.6 TH/MM3 (1.8-7.7) Monocytes # (Auto) 1.2 TH/MM3 (0-0.9) Potassium Level 2.9 MEQ/L (3.5-5.1) Random Glucose 126 MG/DL (74-106) Calcium Level 8.4 MG/DL (8.5-10.1) Test 12/15/16 06:13 White Blood Count 12.7 TH/MM3 (4.0-11.0) Red Blood Count 3.35 MIL/MM3 (4.50-5.90) Hemoglobin 10.2 GM/DL (13.0-17.0) Hematocrit 29.5 % (39.0-51.0) Random Glucose 125 MG/DL (74-106) Imaging Last Impressions Lower Extremity Ultrasound 12/14/16 0000 Signed Impressions: Service Date/Time: Thursday, December 15, 2016 01:24 - CONCLUSION: 1. Negative for deep venous thrombosis. Borderline enlarged left inguinal lymph node. Elvin Jackson MD Renal Arteriogram 12/12/16 0000 Signed Impressions: Service Date/Time: Monday, December 12, 2016 11:26 - CONCLUSION: 1. No definite active bleeding was identified. No definite source for the patient's capsular hemorrhage identified. Followup MRI in 3-6 months for further assessment would be warranted. Galindo Stevenson MD Abdomen MRI 12/11/16 0000 Signed Impressions: Service Date/Time: Sunday, December 11, 2016 10:51 - CONCLUSION: 1. Large subcapsular hemorrhage involving the right kidney measuring 12.1 x 10.3 x 9.0 cm which deforms the right renal cortex. There is contrast blush within the central portion of this hematoma suggesting ongoing hemorrhage. This may result in Page kidney on the right. Clinical correlation is recommended. Perinephric hemorrhage is also noted on the right. 2. Enlarged fatty liver. 3. Scoliosis of the lumbar spine. Eber Ruiz MD Abdomen/Pelvis CT 12/10/162202 Signed Impressions: Service Date/Time: Saturday, December 10, 2016 22:25 - CONCLUSION: 1. Acute hemorrhage of the right kidney, most of the intraparenchymal and perinephric. Etiology uncertain. I don't see a stone or evidence of obstructive uropathy. No definite mass. 2. Tiny nonobstructing stone of the left kidney and a subcentimeter intermediate density nodule of the lower pole that is most likely a debris filled cyst. Nonemergent attempted further characterization with MRI of the abdomen with and without contrast recommended.. Jonah Landrum MD PE at Discharge GENERAL: This is a well-nourished, well-developed patient, in no apparent distress. CARDIOVASCULAR: Regular rate and regular rhythm without murmurs, gallops, or rubs. RESPIRATORY: Clear to auscultation. Breath sounds equal bilaterally. No wheezes , rales, or rhonchi. GASTROINTESTINAL: Abdomen soft, non-tender, nondistended. Normal, active bowel sounds MUSCULOSKELETAL: Extremities without clubbing, cyanosis, or edema. NEURO: Alert & Oriented x4 to person, place, time, situation. Moves all ext x4 Hospital Course - Right renal hemorrhage: Uncertain etiology. MRI shows increasing subcapsular blood collection. s/p renal arteriogram with no active bleeding. urology follow-up appreciated. cleared for discharge per urology with outpatient f/u. -acute anemia due to blood loss; transfused with PRBC - H/H improved and stable. - Hypertension: Continue hydralazine. f/u as outpatient. - Leukocytosis: Possibly stress reaction - afebrile. -left borderline-enlarged inguinal lymph node; f/u as outpatient and this was d/ w the patient. - Hyperglycemia:likley reactive. No documented history of diabetes. Hemoglobin A1c is 6. -constipation; laxatives as needed. - DVT prophylaxis: GRETTAsCHERYL. Avoid chemical prophylaxis secondary to renal hemorrhage. Pt Condition on Discharge: Good Discharge Disposition: Discharge Home Discharge Time: > 30 minutes Discharge Instructions DIET: Follow Instructions for: Heart Healthy Diet Activities you can perform: Regular-No Restrictions Activities to Avoid: Lifting/Bending Other Activity Instructions: no lifting over 20 lbs for two weeks. Follow up Referrals: PCP Follow-up Urology New Medications: Hydralazine HCl (Hydralazine HCl) 25 Mg Tablet 25 MG PO TID Blood Pressure Management #90 Ref 0 Bal Dang MD Dec 15, 2016 09:45
[2016-12-15 10:56] VITALS: BP 164/86; PULSE 86
[2016-12-15 12:00] VITALS: BP 146/88; PULSE 88; RESP 19; TEMP 98.7; O2SAT 97
== END 2016-12-15 11:28 | disposition home or self-care (01) | DRG 699 ==
LOC: PHED 21:44 → PHEDA 23:44 → PH3B 12-11 00:40 → OBSVTOIN 12-12 07:44 → HRIP 12-12 09:51 → HOCB 12-12 14:52
PROVIDERS: ADMIT Internal Medicine; ATTEND Internal Medicine
PROC: 30233N1 Transfusion of Nonautologous Red Blood Cells into Peripheral Vein, Percutaneous Approach (ICD-10-PCS; principal; 2016-12-13)
DX: N28.89 Other specified disorders of kidney and ureter (principal); D62 Acute posthemorrhagic anemia; I10 Essential (primary) hypertension; E78.5 Hyperlipidemia, unspecified; R73.9 Hyperglycemia, unspecified; K59.00 Constipation, unspecified
CPT/HCPCS: 36253; 36430; 74176; 74183; 76937; 80048; 80053; 81001; 82948; 83036; 85014; 85018; 85025; 85027; 85610; 85730; 86850; 86900; 86901; 86920; 93971; 96361; 96374; 96375; 99152; 99153; A9579; C1760; C1769; C1887; C1894; G0378; J0690; J1170; J1815; J1885; J2250; J2405; J3010; J7030; P9016; Q9967

== ENCOUNTER 2016-12-19 14:10 | Day surgery (SDC) | payer SELFPAY ==
[~2016-12-19 14:10] MED LIST changes: +HYDR-3799 PO; -MULT1TAB85 PO
[2016-12-19 14:44] VITALS: BP 165/96; PULSE 86; RESP 20; TEMP 98.4; O2SAT 97
--- NOTE | 2016-12-19 15:40 | RADRPT ---
EXAM DATE/TIME: 12/19/2016 00:00 [facility] COMPARISON : INDICATIONS : R/U Renal angiogram OBJECTIVE: Temperature: 98.4 Heart Rate: 86 Blood Pressure: 165/96 Respiratory: 22 Oximetry: 92 PNEUMONIA VACCINE: HISTORY OF PRESENT ILLNESS: The patient is a 46 year-old who presented to the emergency department with a large subcapsular hemor rhage involving the right kidney. Renal angiography and CT imaging failed to document a significant s ource for the bleeding. PAST MEDICAL HISTORY : Hypertension. PAST SURGICAL HISTORY : None. ASSESSMENT: 46-year-old with a very large subcapsular hematoma arising within the right kidney. No definite sourc e for the hemorrhage was evident. The patient is significantly hypertensive and this may have been et iology. PLAN: The patient was advised to followup with primary care M.D. for management of his hypertension. The brett soria was advised he should undergo MRI imaging or CT imaging in approximately 6-8 months once the he morrhage has resolved to ensure there is no underlying lesion. TIME SPENT: 10 minutes. Galindo Stevenson MD on December 19, 2016 at 15:35 Board Certified Radiologist. This report was verified electronically.
== END 2016-12-19 15:05 | disposition home or self-care (01) ==
LOC: HROP 14:10 → HRIP 14:14 → HROP 15:05
PROVIDERS: ATTEND Radiology Body Imaging
DX: N28.89 Other specified disorders of kidney and ureter (principal); S37.011A Minor contusion of right kidney, initial encounter; R58 Hemorrhage, not elsewhere classified; I10 Essential (primary) hypertension; X58.XXXA Exposure to other specified factors, initial encounter

== ENCOUNTER 2017-01-07 20:16 | Emergency (ER) | payer SELFPAY ==
[~2017-01-07] VITALS: Ht 177.8 cm; Wt 98.4 kg
[2017-01-07 20:32] VITALS: BP 165/101; PULSE 84; RESP 16; TEMP 98.5; O2SAT 100
--- NOTE | 2017-01-07 21:14 | PD ---
HPI Chief Complaint: Flank/Kidney Pain Time Seen by Provider: 20:56 Travel History International Travel<30 days: No Contact w/Intl Traveler<30days: No Traveled to known affect area: No History of Present Illness HPI 46-year-old male points of right flank pain. Patient states that the pain started 2 days ago. Patient states the pain is aching pain localized to right flank area. Patient denies any pain radiation. Patient denies any dysuria or frequency. Patient denies any immaturity a. Patient has history of large subcapsular hemorrhage involving the right kidney recently . patient was [facility] to [facility] on December 12 and discharged December [address] Ngo was consulted. Patient had Blood transfusion during that admission. Patient states that he has been doing well until has increasing pain in the right flank for the past 3 days. On a scale of 1-10 the pain is a 7. PFSH Past Medical History Gastrointestinal Disorders: Yes (HEMMOROIDS WITH HEM SURGERY) Hypertension: Yes Tetanus Vaccination: > 5 Years Influenza Vaccination: No Past Surgical History Other Surgery: Yes (exploratory surgery for internal bleeding to r side) Social History Alcohol Use: Yes (COUPLE TIMES PER MONTH) Tobacco Use: Yes Substance Use: No Allergies-Medications (Allergen,Severity, Reaction): Coded Allergies: No Known Allergies (Unverified , 01/07/17) Reported Meds & Prescriptions Reported Meds & Active Scripts Active Hydralazine HCl 25 Mg Tablet 25 Mg PO TID Review of Systems General / Constitutional: No: Fever Eyes: No: Visual changes HENT: No: Headaches Cardiovascular: No: Chest Pain or Discomfort Respiratory: No: Shortness of Breath Gastrointestinal: No: Abdominal Pain Genitourinary: No: Dysuria Musculoskeletal: No: Pain Skin: No Rash Neurologic: No: Weakness Psychiatric: No: Depression Endocrine: No: Polydipsia Hematologic/Lymphatic: No: Easy Bruising Physical Exam Narrative GENERAL: Well-nourished, well-developed patient. SKIN: Focused skin assessment warm/dry. HEAD: Normocephalic. EYES: No scleral icterus. No injection or drainage. NECK: Supple, trachea midline. No JVD or lymphadenopathy. CARDIOVASCULAR: Regular rate and rhythm without murmurs, gallops, or rubs. RESPIRATORY: Breath sounds equal bilaterally. No accessory muscle use. GASTROINTESTINAL: Abdomen soft, non-tender, nondistended. MUSCULOSKELETAL: No cyanosis, or edema. BACK: Nontender without obvious deformity. No CVA tenderness. Neurologic exam normal. Data Data Last Documented VS Vital Signs Date Time Temp Pulse Resp B/P Pulse Ox O2 Delivery O2 Flow Rate FiO2 01/07/17 21:29 84 18 156/89 97 Room Air 01/07/17 20:32 98.5 Orders Complete Blood Count With Diff (01/07/17 21:08) Comprehensive Metabolic Panel (01/07/17 21:08) Prothrombin Time / Inr (Pt) (01/07/17 21:08) Act Partial Throm Time (Ptt) (01/07/17 21:08) Urinalysis - C+S If Indicated (01/07/17 21:08) Ct Abd/Pel W/O Iv Contrast (01/07/17 21:08) Labs Laboratory Tests Test 01/07/17 01/07/17 21:20 21:26 White Blood Count 9.3 TH/MM3 Red Blood Count 3.98 MIL/MM3 Hemoglobin 12.1 GM/DL Hematocrit 35.4 % Mean Corpuscular Volume 89.0 FL Mean Corpuscular Hemoglobin 30.3 PG Mean Corpuscular Hemoglobin 34.1 % Concent Red Cell Distribution Width 15.2 % Platelet Count 435 TH/MM3 Mean Platelet Volume 6.9 FL Neutrophils (%) (Auto) 70.9 % Lymphocytes (%) (Auto) 15.1 % Monocytes (%) (Auto) 8.6 % Eosinophils (%) (Auto) 4.7 % Basophils (%) (Auto) 0.7 % Neutrophils # (Auto) 6.6 TH/MM3 Lymphocytes # (Auto) 1.4 TH/MM3 Monocytes # (Auto) 0.8 TH/MM3 Eosinophils # (Auto) 0.4 TH/MM3 Basophils # (Auto) 0.1 TH/MM3 CBC Comment DIFF FINAL Differential Comment Prothrombin Time 10.7 SEC Prothromb Time International 1.0 RATIO Ratio Activated Partial 29.3 SEC Thromboplast Time Sodium Level 139 MEQ/L Potassium Level 3.3 MEQ/L Chloride Level 103 MEQ/L Carbon Dioxide Level 28.6 MEQ/L Anion Gap 7 MEQ/L Blood Urea Nitrogen 7 MG/DL Creatinine 0.86 MG/DL Estimat Glomerular Filtration 95 ML/MIN Rate Random Glucose 99 MG/DL Calcium Level 9.0 MG/DL Total Bilirubin 0.3 MG/DL Aspartate Amino Transf 13 U/L (AST/SGOT) Alanine Aminotransferase 25 U/L (ALT/SGPT) Alkaline Phosphatase 81 U/L Total Protein 7.2 GM/DL Albumin 3.3 GM/DL Urine Color YELLOW Urine Turbidity CLEAR Urine pH 6.0 Urine Specific [place] 1.005 Urine Protein NEG mg/dL Urine Glucose (UA) NEG mg/dL Urine Ketones NEG mg/dL Urine Occult Blood NEG Urine Nitrite NEG Urine Bilirubin NEG Urine Leukocyte Esterase NEG Urine Squamous Epithelial 0-5 /hpf Cells Microscopic Urinalysis Comment CULT NOT INDICATED MDM Medical Decision Making Medical Screen Exam Complete: Yes Emergency Medical Condition: Yes Medical Record Reviewed: Yes Interpretation(s) 22:06 PM. CBC WBC 9.3. Hemoglobin 12.1 hematocrit 35.4. Normal differential. Potassium 3.3. UA is negative. 22:33 PM. Last Impressions Abdomen/Pelvis CT 01/07/172107 Signed Impressions: Service Date/Time: Saturday, January 07, 2017 21:52 - CONCLUSION: Subcapsular hematoma is slightly larger in the interval, somewhat expected as the blood becomes more hydrostatic. The blood is becoming less dense suggesting it is liquefying.. Etiology for hematoma is still not apparent. Etiologies for hematoma is not apparent yet. Alfie Stevenson MD FACR Differential Diagnosis Differential diagnosis including recurrent right kidney hemorrhage, pyelonephritis, nephrolithiasis, musculoskeletal. Narrative Course 46-year-old male with increasing right flank pain for the past 3 days. History of subcapsular hemorrhage involving the right kidney 2-1/2 weeks ago. Diagnosis Primary Impression: Renal hemorrhage, right Patient Instructions: General Instructions Additional Instructions: Tylenol for pain. Encourage by mouth fluid. Follow-up with urologist Dr. Ngo. Return if worse. Med/Other Pt SpecificInfo: No Change to Meds Disposition: 01 DISCHARGE HOME Condition: Stable Akira Moran MD Jan 07, 2017 21:14
[2017-01-07 21:29] VITALS: BP 156/89; PULSE 84; RESP 18; O2SAT 97
[2017-01-07 21:33] LABS: AUTOMATED NEUTROPHIL # 6.6 TH/MM3 (1.8-7.7); BASOPHIL # 0.1 TH/MM3 (0-0.2); BASOPHIL % 0.7 % (0.0-2.0); EOSINOPHIL # 0.4 TH/MM3 (0-0.4); EOSINOPHIL % 4.7 % (0.0-4.0); HEMATOCRIT 35.4 % (39.0-51.0); HEMO FLAGS DIFF FINAL; LYMPH % 15.1 % (9.0-44.0); LYMPHOCYTE # 1.4 TH/MM3 (1.0-4.8); MEAN CORPUSCULAR HEMOGLOBIN 30.3 PG (27.0-34.0); MEAN CORPUSCULAR HGB CONC 34.1 % (32.0-36.0); MONO % 8.6 % (0.0-8.0); NEUT % 70.9 % (16.0-70.0); PLATELET COUNT 435 TH/MM3 (150-450); RED BLOOD COUNT 3.98 MIL/MM3 (4.50-5.90); RED CELL DISTRIBUTION WIDTH 15.2 % (11.6-17.2); WHITE BLOOD COUNT 9.3 TH/MM3 (4.0-11.0)
[2017-01-07 21:40] LABS: CHLORIDE 103 MEQ/L (98-107); POTASSIUM 3.3 MEQ/L (3.5-5.1); SODIUM (NA) 139 MEQ/L (136-145)
[2017-01-07 21:43] LABS: BLOOD, URINE NEG (NEG); GLUCOSE,URINE NEG (NEG); KETONE, URINE NEG (NEG); NITRITE,URINE NEG (NEG)
[2017-01-07 21:44] LABS: ANION GAP 7 MEQ/L (5-15); APTT (PATIENT) 29.3 SEC (24.3-30.1); BICARBONATE 28.6 MEQ/L (21.0-32.0); BLOOD UREA NITROGEN 7 MG/DL (7-18); PROTHROMBIN TIME - PATIENT 10.7 SEC (9.8-11.6)
[2017-01-07 21:47] LABS: ALT (GPT) 25 U/L (12-78); AST (GOT) 13 U/L (15-37); GLOMERULAR FILTRATION RATE 95 ML/MIN (>89)
[2017-01-07 21:48] LABS: TOTAL BILIRUBIN ADULT 0.3 MG/DL (0.2-1.0)
[2017-01-07 21:49] LABS: URINE COLOR YELLOW (YELLW/STRAW)
[2017-01-07 21:50] LABS: COMMENT (UR) CULT NOT INDICATED; CULTURE IF INDICATED CULT NOT INDICATED; SQUAMOUS EPITHELIAL CELL URINE 0-5 /hpf (0-5)
[2017-01-07 21:50] LABS: ALKALINE PHOSPHATASE 81 U/L (45-117)
--- NOTE | 2017-01-07 22:27 | RADRPT ---
EXAM DATE/TIME: 01/07/2017 21:52 [facility] COMPARISON: MRI ABDOMEN W & W/O CONTRAST, December 11, 2016, 10:51. ANGIOGRAM,RENAL,RT W/AORTAGRAM, December 12, 2016, 1 1:26. CT ABDOMEN & PELVIS W/O CONTRAST, December 10, 2016, 22:25. INDICATIONS : Right flank pain. History of right kidney subscapular hemorrhage. ORAL CONTRAST: No oral contrast ingested. RADIATION DOSE: 20.78 CTDIvol (mGy) MEDICAL HISTORY : Hypertension. SURGICAL HISTORY : Hemorrhoidectomy. Exploratory abdomen. ENCOUNTER: Initial ACUITY: 2 days PAIN SCALE: 4/10 LOCATION: Right flank TECHNIQUE: Volumetric scanning of the abdomen and pelvis was performed. Using automated exposure control and ad justment of the mA and/or kV according to patient size, radiation dose was kept as low as reasonably achievable to obtain optimal diagnostic quality images. DICOM format image data is available electro nically for review and comparison. FINDINGS: Again seen is the large right subcapsular hematoma, slightly larger in the interval. The left kidney is unremarkable. The hemorrhage is confined dangerous fashion. The liver, spleen and adrenals are unremarkable. No other hemorrhage is identified. CONCLUSION: Subcapsular hematoma is slightly larger in the interval, somewhat expected as the blood becomes more hydrostatic. The blood is becoming less dense suggesting it is liquefying.. Etiology for hematoma is still not apparent. Etiologies for hematoma is not apparent yet. Alfie Stevenson MD FACR on January 07, 2017 at 22:17 Board Certified Radiologist. This report was verified electronically.
[2017-01-07 22:30] VITALS: BP 140/81; PULSE 83; RESP 18; O2SAT 98
[2017-01-07 23:13] VITALS: BP 132/89
== END 2017-01-07 23:13 | disposition home or self-care (01) ==
LOC: PHED 20:16
DX: N28.89 Other specified disorders of kidney and ureter (principal); I10 Essential (primary) hypertension; Z72.0 Tobacco use; Z87.448 Personal history of other diseases of urinary system; Z87.19 Personal history of other diseases of the digestive system
CPT/HCPCS: 74176; 80053; 81001; 85025; 85610; 85730; 99284